=== PATIENT | male | born 1960 | race Caucasian/White ===

== ENCOUNTER 2019-03-15 21:36 | Inpatient (IN) | payer MEDICARE ==
[~2019-03-15] VITALS: Ht 177.8 cm; Wt 86.2 kg
[2019-03-15] MEDS ORDERED: LISINOPRIL20 MG PO (21:40)
[2019-03-15] MEDS ORDERED: LOVASTATIN20 MG PO (21:40)
[2019-03-15] MEDS ORDERED: FOLIC ACID1 MG PO (21:41)
[2019-03-15] MEDS ORDERED: BAYER CHEWABLE81 MG PO (21:41)
[2019-03-15] MEDS ORDERED: CELEXA10 MG PO (21:41)
[2019-03-15] MEDS ORDERED: REMERON15 MG PO (21:41)
[2019-03-15] MEDS ORDERED: SEROQUEL25 MG PO (21:42)
[2019-03-15] MEDS ORDERED: MOBIC7.5 MG PO (21:42)
[2019-03-15] MEDS ORDERED: DEPAKOTE250 MG PO (21:42)
[2019-03-15] MEDS ORDERED: COLACE100 MG PO (21:43)
[2019-03-15 22:13] LABS: BASOPHILS 0.2 % (0-2); HEMATOCRIT 38.1 % (42.0-54.0); HEMOGLOBIN 12.8 g/dL (13.5-17.5); IMMATURE GRANULOCYTES 0.1 % (0-5); LYMPHOCYTES 12.2 % (15-50); MCH 28.9 pg (26.0-34.0); MCHC 33.6 g/dL (31.0-37.0); MONOCYTES 11.4 % (2-11); NEUTROPHILS 75.1 % (40-80); PLATELET COUNT 186 10x3/uL (130-400); RBC 4.43 10x6/uL (4.20-6.10); RDW 13.3 % (11.5-14.5); WBC 9.5 10x3/uL (4.8-10.8)
[2019-03-15 22:23] LABS: APTT 27.8 SECONDS (22.8-39.4); INR 1.26 (0.85-1.17); PROTIME 15.2 SECONDS (11.6-15.0)
[2019-03-15 22:28] LABS: ALBUMIN 3.5 g/dL (3.4-5.0); ALKALINE PHOSPHATASE 69 U/L (46-116); ALT (SGPT) 48 U/L (10-68); BILIRUBIN - TOTAL 0.69 mg/dL (0.2-1.3); CALC OSMOLALITY 303 mosm/kg (275-300); CALCIUM 8.9 mg/dL (8.5-10.1); CHLORIDE - SERUM 111 mmol/L (98-107); CREATININE - SERUM 1.1 mg/dL (0.6-1.3); GLUCOSE 118 mg/dL (74-106); POTASSIUM - SERUM 3.4 mmol/L (3.5-5.1); PROTEIN - SERUM 6.6 g/dL (6.4-8.2); SODIUM 148 mmol/L (136-145); UREA NITROGEN 38 mg/dL (7-18); eGFR NON AFRICAN AMERICAN 72 mL/min (90-120)
[2019-03-15 23:04] LABS: LIPASE 157 U/L (73-393); MAGNESIUM - SERUM 2.1 mg/dL (1.8-2.4); PRO BNP 400 pg/mL (0-125); THYROID STIMULATING HORMONE 0.65 uIU/mL (0.36-3.74); TROPONIN-I 0.024 ng/mL (0.000-0.060)
[2019-03-15 23:05] LABS: CREATINE KINASE 2574 UL (21-232)
[2019-03-15 23:13] LABS: CKMB 54.4 U/L (0.0-3.6)
[2019-03-16] VITALS (7 sets, daily range): BP systolic 131–181; BP diastolic 76–85; Ht 177.8 cm; Wt 86.2 kg
--- NOTE | 2019-03-16 00:40 | NUR ---
NORMAL SALINE CONTINUED ON ADMISSION TO FLOOR.
--- NOTE | 2019-03-16 04:44 | NUR ---
UA COLLECTED VIA INOUT CATH, PER PROTOCOL AND SENT TO LAB. ELLEND WELL. PT. RESTING AT THIS TIME WITH NO NEEDS NOTED OR STATED.
[2019-03-16 04:50] LABS: APPEARANCE CLEAR (CLEAR); BILIRUBIN NEGATIVE (NEGATIVE); COLOR DK YELLOW (YELLOW); GLUCOSE NEGATIVE (NEGATIVE); KETONE MODERATE mg/dL (NEGATIVE); NITRITE NEGATIVE (NEGATIVE); PROTEIN NEGATIVE (NEGATIVE); UROBILINOGEN NORMAL (NORMAL)
[2019-03-16 04:57] LABS: UDS - AMPHET NEGATIVE QUAL (NEGATIVE); UDS - BARB NEGATIVE QUAL (NEGATIVE); UDS - BENZO NEGATIVE QUAL (NEGATIVE); UDS - COCAINE NEGATIVE QUAL (NEGATIVE); UDS - OPIATE NEGATIVE QUAL (NEGATIVE); UDS - PCP NEGATIVE QUAL (NEGATIVE); UDS - THC NEGATIVE QUAL (NEGATIVE)
[2019-03-16 05:48] LABS: BASOPHILS 0.3 % (0-2); HEMATOCRIT 36.1 % (42.0-54.0); IMMATURE GRANULOCYTES 0.1 % (0-5); LYMPHOCYTES 26.9 % (15-50); MCH 28.8 pg (26.0-34.0); MCHC 33.2 g/dL (31.0-37.0); MCV 86.6 fL (80.0-100.0); MEAN PLATELET VOLUME 9.4 fL (7.4-10.4); MONOCYTES 10.6 % (2-11); NEUTROPHILS 60.1 % (40-80); PLATELET COUNT 181 10x3/uL (130-400); RBC 4.17 10x6/uL (4.20-6.10); RDW 13.4 % (11.5-14.5); WBC 7.7 10x3/uL (4.8-10.8)
[2019-03-16 06:54] LABS: ALBUMIN 3.1 g/dL (3.4-5.0); ALKALINE PHOSPHATASE 55 U/L (46-116); ALT (SGPT) 43 U/L (10-68); BILIRUBIN - TOTAL 0.62 mg/dL (0.2-1.3); CALC OSMOLALITY 299 mosm/kg (275-300); CALCIUM 8.2 mg/dL (8.5-10.1); CARBON DIOXIDE 30.6 mmol/L (21.0-32.0); CHLORIDE - SERUM 112 mmol/L (98-107); GLUCOSE 82 mg/dL (74-106); POTASSIUM - SERUM 3.2 mmol/L (3.5-5.1); PROTEIN - SERUM 5.9 g/dL (6.4-8.2); SODIUM 148 mmol/L (136-145); UREA NITROGEN 33 mg/dL (7-18)
[2019-03-16 06:59] LABS: CREATININE - SERUM 0.8 mg/dL (0.6-1.3)
[2019-03-16 07:00] LABS: CREATINE KINASE 1739 UL (21-232); eGFR NON AFRICAN AMERICAN > 90 mL/min (90-120)
[2019-03-16 07:25] LABS: CKMB 34.6 U/L (0.0-3.6)
--- NOTE | 2019-03-16 16:18 | NUR ---
PT CONFUSED. TBI PT. BREATH SOUNDS CLEAR BILAT. TELEMETRY IN PLACE IV TO RIGHT HAND, PATENT, DRESSING CDI. SKIN TEAR AND BLISTER TO LEFT KNEE. BLISTER TO RIGHT KNEE AND THIGH. SKIN TEAR TO LEFT TOES. BED LOW, CALL LIGHT IN REACH. NO OTHER NEEDS AT THIS TIME.
--- NOTE | 2019-03-16 19:15 | NUR ---
RECEIVED CARE FROM DAY NURSE. SITTING UP IN BED WATCHING TV. REPORTS NO NEEDS AT THIS TIME. CALL LIGHT AT SIDE. IV INFUSING PER ORDER TO RIGHT HAND.
[2019-03-17 04:00] VITALS: BP 149/54
[2019-03-17 05:07] LABS: BASOPHILS 0.5 % (0-2); EOSINOPHILS 4.8 % (0-7); HEMATOCRIT 35.4 % (42.0-54.0); HEMOGLOBIN 11.9 g/dL (13.5-17.5); IMMATURE GRANULOCYTES 0.2 % (0-5); LYMPHOCYTES 31.6 % (15-50); MCH 29.1 pg (26.0-34.0); MCHC 33.6 g/dL (31.0-37.0); MCV 86.6 fL (80.0-100.0); MEAN PLATELET VOLUME 9.1 fL (7.4-10.4); MONOCYTES 8.7 % (2-11); NEUTROPHILS 54.2 % (40-80); PLATELET COUNT 167 10x3/uL (130-400); RBC 4.09 10x6/uL (4.20-6.10); RDW 13.2 % (11.5-14.5); WBC 6.3 10x3/uL (4.8-10.8)
[2019-03-17 05:27] LABS: ALBUMIN 2.9 g/dL (3.4-5.0); ALKALINE PHOSPHATASE 54 U/L (46-116); ALT (SGPT) 44 U/L (10-68); BILIRUBIN - TOTAL 0.54 mg/dL (0.2-1.3); CALC OSMOLALITY 292 mosm/kg (275-300); CALCIUM 8.2 mg/dL (8.5-10.1); CARBON DIOXIDE 29.2 mmol/L (21.0-32.0); CHLORIDE - SERUM 111 mmol/L (98-107); CREATININE - SERUM 0.8 mg/dL (0.6-1.3); GLUCOSE 81 mg/dL (74-106); POTASSIUM - SERUM 3.5 mmol/L (3.5-5.1); PROTEIN - SERUM 5.3 g/dL (6.4-8.2); SODIUM 146 mmol/L (136-145); UREA NITROGEN 22 mg/dL (7-18); eGFR NON AFRICAN AMERICAN > 90 mL/min (90-120)
[2019-03-17 09:17] VITALS: BP 179/94
--- NOTE | 2019-03-17 11:05 | NUR ---
PT CONFUSED. BREATH SOUNDS CLEAR BILAT. TELEMETRY IN PLACE. IV TO RIGHT HAND, PATENT, DRESSING CDI. PT REPORTING PAIN OF 8/10, CLAIMS THIS IS HIS BASELINE, WILL MONITOR. SKIN TEAR AND BLISTERS TO LEFT KNEE, DRESSING CDI. ABRAISIONS TO LEFT TOES. BED LOW, CALL LIGHT IN REACH. NO OTHER NEEDS AT THIS TIME.
[2019-03-17 11:45] LABS: CKMB 5.8 U/L (0.0-3.6)
[2019-03-17 11:47] LABS: CREATINE KINASE 772 UL (21-232)
[2019-03-17 13:07] VITALS: BP 172/88
[2019-03-17 17:00] VITALS: BP 178/89
--- NOTE | 2019-03-17 19:15 | NUR ---
RECEIVED CARE FROM DAY NURSE. LYING IN BED WITH EYES CLOSED. RESP EVEN AND UNLABORED. CALL LIGHT AT SIDE. IV INFUSING PER ORDER TO RIGHT HAND.
[2019-03-17 20:00] VITALS: BP 176/85
[2019-03-18] VITALS: BP 162/87
--- NOTE | 2019-03-18 03:25 | NUR ---
I have reviewed this patient and I concur with the Shift Assessment completed by the Licensed Practical Nurse today this shift.
--- NOTE | 2019-03-18 05:00 | NUR ---
IV IN RIGHT HAND DISLOADGED WITH TIP INTACT. RESITED TO RIGHT UPPER ARM. 22 GUAGE X4 STICKS WITH GOOD BLOOD RETURN NOTED.
[2019-03-18 06:08] LABS: BASOPHILS 0.5 % (0-2); EOSINOPHILS 3.6 % (0-7); HEMOGLOBIN 13.8 g/dL (13.5-17.5); IMMATURE GRANULOCYTES 0.1 % (0-5); LYMPHOCYTES 25.7 % (15-50); MCH 29.2 pg (26.0-34.0); MCHC 34.5 g/dL (31.0-37.0); MEAN PLATELET VOLUME 9.4 fL (7.4-10.4); NEUTROPHILS 62.1 % (40-80); PLATELET COUNT 180 10x3/uL (130-400); RBC 4.73 10x6/uL (4.20-6.10); RDW 12.8 % (11.5-14.5)
[2019-03-18 06:19] LABS: MCV 84.6 fL (80.0-100.0); WBC 7.9 10x3/uL (4.8-10.8)
[2019-03-18 06:48] LABS: ALBUMIN 3.3 g/dL (3.4-5.0); ALKALINE PHOSPHATASE 66 U/L (46-116); ALT (SGPT) 55 U/L (10-68); BILIRUBIN - TOTAL 0.75 mg/dL (0.2-1.3); CALCIUM 8.7 mg/dL (8.5-10.1); CARBON DIOXIDE 30.5 mmol/L (21.0-32.0); CHLORIDE - SERUM 106 mmol/L (98-107); CKMB 5.2 U/L (0.0-3.6); CREATININE - SERUM 0.7 mg/dL (0.6-1.3); GLUCOSE 75 mg/dL (74-106); POTASSIUM - SERUM 3.5 mmol/L (3.5-5.1); SODIUM 143 mmol/L (136-145); eGFR NON AFRICAN AMERICAN > 90 mL/min (90-120)
[2019-03-18 06:53] LABS: CALC OSMOLALITY 282 mosm/kg (275-300); CREATINE KINASE 558 UL (21-232); PROTEIN - SERUM 6.7 g/dL (6.4-8.2); UREA NITROGEN 11 mg/dL (7-18)
--- NOTE | 2019-03-18 09:00 | NUR ---
ASSESSMENT PER FLOW SHEET. PT IS WITHOUT DISTRESS.DOOR OPEN TO MONITOR
[2019-03-18 09:46] VITALS: BP 168/82
--- NOTE | 2019-03-18 12:34 | MORECARE ---
CASE MANAGEMENT DISCHARGE SUMMARY PATIENT: PAGE SUAREZ UNIT: [id number] ADM DATE: 03/15/19 AGE: 59 : 58 SEX: M ROOM/BED: D.2226 AUTHOR: YANIV ORR PHYSICIAN: REFERRING PHYSICIAN: ANTWON TANG MD DATE OF SERVICE: 03/18/19 Discharge Plan Patient Name: PAGE SUAREZ Facility: [facility]:[place] : 1960 Planned Disposition: Anticipated Discharge Date: Discharge Date: Expected LOS: Initial Reviewer: [email or web address] Initial Review Date: 03/18/2019 Generated: 03/18/19 1:34 pm Comments DCP- Discharge Planning Updated by [email or web address]: Mary Sosa on 03/18/19 11:[address] I called patient's sister Estela at [phone] and she would like to meet with me in about an hour to discuss discharge planning. I informed her to call me directly when she is here or inform someone at the med surg desk that she is here. Patient is sleeping in the room. CM will continue to follow and assist with discharge planning/needs. Patient Name: PAGE SUAREZ Page [id number] at 1234 All edits/amendments must be made on the electronic document DICTATION DATE: 03/18/19 1233 OPHTHALMIC MEDICAL TECHNOLOGIST: RIRI 03/18/19 1233 RPT#: [id number] DC DATE: STATUS: ADM IN [facility] [address] [place] [address] END OF REPORT
--- NOTE | 2019-03-18 13:10 | NUR ---
OT NOTE: INCREASED CONFUSION TODAY. INCREASED DIFFICULTY FOLLOWING COMMANDS. BED MOB WITH MAX ASSIST; STATIC SITTING WITH SPV; MOD ASSIST TO GET PTS FEET UNCROSSED IN ORDER TO STAND ( DUE TO HIGH TONE IN LES).. ABLE TO STAND WITH MIN ASSIST; STATIC STANDING WITH MIN ASSIST. ENCOURAGED PT TO ATTEMPT URINAL USE WITHOUT ASSIST, HOWEVER, PT ENDED UP SPILLING MAJORITY OF IT. MAX ASSIST FOR DONNING AND DOFFING BRIEF; MAX ASSIST TO JAYLON AND DOFF SOCKS; MOD ASSIST TO JAYLON GOWN. ABLE TO TAKE A FEW STEPS FORWARD AND SIDE STEP WITH MIN ASSIST AND USE OF WALKER. EXT TIME FOR PROCESSING. DURGA MCNEIL, OTR/L
[2019-03-18 14:23] VITALS: BP 167/86
--- NOTE | 2019-03-18 14:56 | MORECARE ---
CASE MANAGEMENT DISCHARGE SUMMARY PATIENT: PAGE SUAREZ UNIT: [id number] ADM DATE: 03/15/19 AGE: 59 : 58 SEX: M ROOM/BED: D.2226 AUTHOR: KIRBY,DOC PHYSICIAN: REFERRING PHYSICIAN: ANTWON TANG MD DATE OF SERVICE: 03/18/19 Discharge Plan Patient Name: PAGE SUAREZ Facility: [facility]:[place] : 1960 Planned Disposition: Inpatient Rehab Anticipated Discharge Date: Discharge Date: Expected LOS: Initial Reviewer: [email or web address] Initial Review Date: 03/18/2019 Generated: 03/18/19 3:55 pm Comments DCP- Discharge Planning Updated by [id number]: Mary Sheila on 03/18/19 11:[address] I called patient's sister Estela at [phone] and she would like to meet with me in about an hour to discuss discharge planning. I informed her to call me directly when she is here or inform someone at the med [facility] desk that she is here. Patient is sleeping in the room. CM will continue to follow and assist with discharge planning/needs. DCPIA - Discharge Planning Initial Assessment Updated by [email or web address]: Mary Sheila on 03/18/19 2:55 pm * Is the patient Alert and Oriented? No * PCP Dr. Robbins * Pharmacy [facility] [address] * Preadmission Environment Home with Family * ADLs Partial Dependent * Partial ADLs (Assistance needed) Ambulation * Equipment Walker * List name and contact numbers for known caregivers / representatives who currently or will assist patient after discharge: Estela Suarez - sister - [phone] * Verbal permission to speak to the caregivers and representatives has been obtained from the patient. Yes * Community resources currently utilized None * Additional services required to return to the preadmission environment? Yes * Can the patient safely return to the preadmission environment? No * Has this patient been hospitalized within the prior 30 days at any hospital? No External Providers External Provider: [facility] Next Contact Date: Service Request Date: Service Type: Resolution: Reviewer: Comments: Last DP export: 03/18/19 11:34 a Patient Name: PAGE SUAREZ Page [id number] at 1456 All edits/amendments must be made on the electronic document DICTATION DATE: 03/18/191454 PATCHER BOWLING BALL: RIRI 03/18/191454 RPT#: [id number] DC DATE: STATUS: ADM IN [facility] [address] [place] [address] END OF REPORT
--- NOTE | 2019-03-18 15:15 | MORECARE ---
CASE MANAGEMENT DISCHARGE SUMMARY PATIENT: PAGE SUAREZ UNIT: [id number] ADM DATE: 03/15/19 AGE: 59 : 58 SEX: M ROOM/BED: D.2226 AUTHOR: KIRBY,DOC PHYSICIAN: REFERRING PHYSICIAN: ANTWON TANG MD DATE OF SERVICE: 03/18/19 Discharge Plan Patient Name: PAGE SUAREZ Facility: [facility]:[place] : 1960 Planned Disposition: Inpatient Rehab Anticipated Discharge Date: Discharge Date: Expected LOS: Initial Reviewer: [email or web address] Initial Review Date: 03/18/2019 Generated: 03/18/19 4:14 pm Comments DCP- Discharge Planning Updated by [id number]: Mary Sosa on 03/18/19 2:[address] Patient Name: PAGE SUAREZ Admission Status: ER Accout number: [id number] Admission Date: 03-15-2019 : 1960 Admission Diagnosis: Attending: CLYDE, Current LOS: 3 Anticipated DC Date: Planned Disposition: Inpatient Rehab Primary Insurance: [employer] CHOICE PPO [employer] Discharge Planning Comments: CM met with patient's sister, Estela (She is also his POA for healthcare). She states that her brother and step father (Anurag) has been living together. She states neither of them drive, but she has had their neighbors (Swathi Aguila) be their private caregivers. She states they are neighbors with Pepe and Cherry. She states she lives in [place] and states the neighbors found her brother on the floor and did not call 911. She states that she has found that they are taking her brother's money and charging personal items on his credit card. She states her brother walks with a walker and she had him set up [facility] [place], but his caretakers did not take him. She states that she now has new caretakers that she can trust to move in the house so when her brother return home, he and her step father will never be alone. She would like him to go to [facility] inpatient rehab (he has been there before) prior to going home. I called [facility] and clinical faxed to [facility]. Estela states that she does not want him to go to a skilled unit, she thinks he would not like that. I called [facility] (and informed Estela that I was going to do so) and spoke to Leanne [place]. [place] [id number]. CM will continue to follow and assist with discharge planning/needs. Process Development Associate: Marykevin Sosa DCP- Discharge Planning Updated by [id number]: Mary Mathewjostin on 03/18/19 11:[address] I called patient's sister Estela at [phone] and she would like to meet with me in about an hour to discuss discharge planning. I informed her to call me directly when she is here or inform someone at the med surg desk that she is here. Patient is sleeping in the room. CM will continue to follow and assist with discharge planning/needs. DCPIA - Discharge Planning Initial Assessment Updated by [id number]: Mary Sosa on 03/18/19 2:55 pm * Is the patient Alert and Oriented? No * PCP Dr. Robbins * Pharmacy [facility] [address] * Preadmission Environment Home with Family * ADLs Partial Dependent * Partial ADLs (Assistance needed) Ambulation * Equipment Walker * List name and contact numbers for known caregivers / representatives who currently or will assist patient after discharge: Estela Suarez - sister - [phone] * Verbal permission to speak to the caregivers and representatives has been obtained from the patient. Yes * Community resources currently utilized None * Additional services required to return to the preadmission environment? Yes * Can the patient safely return to the preadmission environment? No * Has this patient been hospitalized within the prior 30 days at any hospital? No Last DP export: 03/18/19 1:55 p Patient Name: PAGE SUAREZ Page [id number] at 1515 All edits/amendments must be made on the electronic document DICTATION DATE: 03/18/191513 SUPERVISOR LABORATORY: RIRI 03/18/191513 RPT#: [id number] DC DATE: STATUS: ADM IN [facility] [address] [place] [address] END OF REPORT
[2019-03-18 17:12] VITALS: BP 114/68
[2019-03-18 22:03] VITALS: BP 155/82
[2019-03-19 01:49] VITALS: BP 155/82
--- NOTE | 2019-03-19 03:48 | NUR ---
PT RESTING IN BED. ALERT WITH SOME CONFUSION. NO SIGNS OF DISTRESS. BREATHING EVEN AND UNLABORED. PT STATES NO PROBLEMS AT THIS TIME. IV SITE RT CHEST. DRESSING CLEAN DRY AND INTACT. NO SIGNS OF INFECTION. BOWEL SOUNDS ACTIVE. LOWER LEG BRUISES PRESENT. WILL CONTINUE PLAN OF CARE. CALL LIGHT IN REACH. BED LOWERED AND LOCKED. SKYE ALARM ON.
--- NOTE | 2019-03-19 04:01 | NUR ---
I have reviewed this patient and I concur with the Shift Assessment completed by the Licensed Practical Nurse today this shift.
[2019-03-19 04:28] LABS: BASOPHILS 0.5 % (0-2); EOSINOPHILS 3.7 % (0-7); HEMATOCRIT 40.8 % (42.0-54.0); HEMOGLOBIN 13.8 g/dL (13.5-17.5); IMMATURE GRANULOCYTES 0.2 % (0-5); LYMPHOCYTES 30.9 % (15-50); MCH 28.6 pg (26.0-34.0); MCHC 33.8 g/dL (31.0-37.0); MCV 84.6 fL (80.0-100.0); MONOCYTES 6.2 % (2-11); NEUTROPHILS 58.5 % (40-80); PLATELET COUNT 195 10x3/uL (130-400); RBC 4.82 10x6/uL (4.20-6.10)
[2019-03-19 04:30] LABS: WBC 5.7 10x3/uL (4.8-10.8)
[2019-03-19 04:50] LABS: ALBUMIN 3.3 g/dL (3.4-5.0); ALKALINE PHOSPHATASE 65 U/L (46-116); ALT (SGPT) 49 U/L (10-68); BILIRUBIN - TOTAL 0.71 mg/dL (0.2-1.3); CALC OSMOLALITY 282 mosm/kg (275-300); CALCIUM 8.5 mg/dL (8.5-10.1); CARBON DIOXIDE 34.3 mmol/L (21.0-32.0); CHLORIDE - SERUM 106 mmol/L (98-107); CREATININE - SERUM 0.8 mg/dL (0.6-1.3); GLUCOSE 74 mg/dL (74-106); POTASSIUM - SERUM 3.1 mmol/L (3.5-5.1); PROTEIN - SERUM 6.6 g/dL (6.4-8.2); SODIUM 143 mmol/L (136-145); UREA NITROGEN 9 mg/dL (7-18); eGFR NON AFRICAN AMERICAN > 90 mL/min (90-120)
[2019-03-19 04:52] LABS: CREATINE KINASE 246 UL (21-232)
[2019-03-19 06:31] VITALS: BP 158/84
[2019-03-19 09:32] VITALS: BP 157/80
[2019-03-19] MEDS ORDERED: NORVASC10 MG PO (10:23)
--- NOTE | 2019-03-19 11:35 | NUR ---
Noted left knee has abrasion measuring 4cm x 2cm. It is healing with no signs of infection. Left #2 toe has open wound measuring 0.6cm x 0.6cm x 0.1cm and #3 toe 0.5cm x 0.5cm x 0.1cm. The wound beds are dry and there is no odor or redness. Bilateral lower legs are hyperpigmentated. Brown in color and hairless. Exoriation noted on bottom. Zinc oxide paste is being applied with personal care. Recommendations: Keep abrasion on left knee clean and dry. Cover to protect. Left #2 and #3 toes - paint with betadine daily. Continue use of zinc oxide to bottom/perineal area for protection from wetness. Turn/reposition q 2 hours when in bed. Float heels to protect from breakdown.
[2019-03-19 13:01] VITALS: BP 139/77
--- NOTE | 2019-03-19 13:31 | NUR ---
NUTRITION F/U CHART REVIEWED. PT REMAINS ON CLEAR LIQUID DIET. WILL ATTEMPT TO SPEAK WITH RE: ADVANCING DIET. NOTE POSSIBLE DC. RD FOLLOWING
--- NOTE | 2019-03-19 13:34 | NUR ---
OT NOTE: INCREASED CONFUSION; POOR WORD FINDING; UNABLE TO FOLLOW SIMPLE COMMANDS; MAX ASSIST WITH SUPINE TO SIT; MAX ASSIST FOR FOOT PLACEMENT WHILE SITTING ON EOB; MOD ASSIST FOR SIT TO STAND WITH WALKER. AMB APPROX 10 FT FROM BED TO TOILET, PT IS HAVING INCREASED DIFFICULTY USING URINAL. PT AMB WITH GAIT BELT, IV, RW, AND MIN ASSIST; MOD ASSIST WITH WALKER MGMT; PT AMB WITH LEGS EXTERNALLY ROTATED. INCREASED DIFFICULTY WITH STAND TO SIT DUE TO HIP PAIN. MAX ASSIST FOR SIT TO SUPINE. PT UNABLE TO MAKE NEEDS KNOWN SECONDARY TO CONFUSION. MAX ASSIST WITH DONNING AND DOFFING PULL UPS AND SOCKS; MOD ASSIST WITH GOWN. DURGA MCNEIL, OTR/L
[2019-03-19 18:45] VITALS: BP 149/82
--- NOTE | 2019-03-19 19:01 | NUR ---
FAMILY TO VISIT. PT IS WITHOUT DISTRESS.CONT PLAN OF CARE
[2019-03-19 20:00] VITALS: BP 144/82
--- NOTE | 2019-03-20 03:14 | NUR ---
I have reviewed this patient and I concur with the Shift Assessment completed by the Licensed Practical Nurse today this shift.
--- NOTE | 2019-03-20 03:38 | NUR ---
PT RESTING IN BED. EYES CLOSED. NO SIGNS OF DISTRESS. BREATHING EVEN AND UNLABORED. IV SITE RT CHEST DRESSING CLEAN DRY AND INTACT. NO SIGNS OF INFECTION. TELE MONITOR ON 65 SINUS. BOWEL SOUNDS ACTIVE. LT AND RT LOWER LEGS DISCOLORATION. LT TOE SORES. WILL CONTINUE PLAN OF CARE. CALL LIGHT IN REACH. BED LOWERED AND LOCKED.
[2019-03-20 04:00] VITALS: BP 133/75
[2019-03-20 07:25] LABS: BASOPHILS 0.6 % (0-2); EOSINOPHILS 3.6 % (0-7); HEMATOCRIT 40.9 % (42.0-54.0); HEMOGLOBIN 13.8 g/dL (13.5-17.5); IMMATURE GRANULOCYTES 0.2 % (0-5); LYMPHOCYTES 34.6 % (15-50); MCH 28.9 pg (26.0-34.0); MCHC 33.7 g/dL (31.0-37.0); MCV 85.7 fL (80.0-100.0); MEAN PLATELET VOLUME 9.9 fL (7.4-10.4); MONOCYTES 9.6 % (2-11); NEUTROPHILS 51.4 % (40-80); PLATELET COUNT 174 10x3/uL (130-400); RBC 4.77 10x6/uL (4.20-6.10); RDW 13.1 % (11.5-14.5); WBC 5.2 10x3/uL (4.8-10.8)
[2019-03-20 07:41] LABS: ALBUMIN 3.2 g/dL (3.4-5.0); ALKALINE PHOSPHATASE 60 U/L (46-116); ALT (SGPT) 35 U/L (10-68); CALC OSMOLALITY 291 mosm/kg (275-300); CALCIUM 8.6 mg/dL (8.5-10.1); CARBON DIOXIDE 28.4 mmol/L (21.0-32.0); CHLORIDE - SERUM 109 mmol/L (98-107); CKMB 1.4 U/L (0.0-3.6); CREATINE KINASE 108 UL (21-232); CREATININE - SERUM 0.8 mg/dL (0.6-1.3); GLUCOSE 99 mg/dL (74-106); POTASSIUM - SERUM 4.2 mmol/L (3.5-5.1); SODIUM 147 mmol/L (136-145); UREA NITROGEN 12 mg/dL (7-18); eGFR NON AFRICAN AMERICAN > 90 mL/min (90-120)
--- NOTE | 2019-03-20 08:00 | NUR ---
PT IS RESTING IN BED WITH EYES CLOSED. RESPIRATIONS ARE EVEN AND UNLABORED. PT IS EASILY AROUSED WITH VERBAL STIMULATION. PT DENIES PRESENCE OF N/V/PAIN AT THIS TIME. PT IS ORIENTED X 1. PT ABLE TO STATE NAME. PER SISTER. 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 PT DENIES FURTHER NEEDS AT THIS TIME. BED IS IN THE LOWEST POSITION. CALL LIGHT AND BEDSIDE TABLE ARE WITHIN REACH. SIDE RAILS X 2. BED ALARM IS ON AND WORKING. WILL CONT TO MONITOR.
[2019-03-20 09:05] VITALS: BP 144/81
--- NOTE | 2019-03-20 12:48 | MORECARE ---
CASE MANAGEMENT DISCHARGE SUMMARY PATIENT: PAGE SUAREZ UNIT: [id number] ADM DATE: 03/15/19 AGE: 59 : 58 SEX: M ROOM/BED: D.2226 AUTHOR: KIRBY,DOC PHYSICIAN: REFERRING PHYSICIAN: ANTWON TANG MD DATE OF SERVICE: 03/20/19 Discharge Plan Patient Name: PAGE SUAREZ Facility: [facility]:[place] : 1960 Planned Disposition: Inpatient Rehab Anticipated Discharge Date: Discharge Date: Expected LOS: Initial Reviewer: [email or web address] Initial Review Date: 03/18/2019 Generated: 03/20/19 1:47 pm Comments DCP- Discharge Planning Updated by [email or web address]: Mary Sosa on 03/20/19 11:[address] I spoke with patient and his sister today and informed him of insurance denial for inpatient rehab. His sister, Estela, would like a peer to peer done. She also agrees with psychiatric consult. He is too young for admission to our inpatient rehab and states if he needs inpatient rehab she would agree to [facility]. She does not want him to [facility] to [facility]. CM will continue to follow and assist with discharge planning/needs. DCP- Discharge Planning Updated by [id number]: Mary Sosa on 03/18/19 2:[address] Patient Name: PAGE SUAREZ Admission Status: ER Accout number: [id number] Admission Date: 03-15-2019 : 1960 Admission Diagnosis: Attending: CLYDE, Current LOS: 3 Anticipated DC Date: Planned Disposition: Inpatient Rehab Primary Insurance: [employer] CHOICE PPO [facility] Discharge Planning Comments: CM met with patient's sister, Estela (She is also his POA for healthcare). She states that her brother and step father (Anurag) has been living together. She states neither of them drive, but she has had their neighbors (Pepe and Cherry Aguila) be their private caregivers. She states they are neighbors with Pepe and Cherry. She states she lives in [place] and states the neighbors found her brother on the floor and did not call 911. She states that she has found that they are taking her brother's money and charging personal items on his credit card. She states her brother walks with a walker and she had him set up to [facility] [place], but his caretakers did not take him. She states that she now has new caretakers that she can trust to move in the house so when her brother return home, he and her step father will never be alone. She would like him to go to [facility] inpatient rehab (he has been there before) prior to going home. I called [facility] and clinical faxed to [facility]. Estela states that she does not want him to go to a skilled unit, she thinks he would not like that. I called [facility] (and informed Estela that I was going to do so) and spoke to Leanne [place]. [place] [id number]. CM will continue to follow and assist with discharge planning/needs. Power Brake Rebuilder: Mary Sosa DCP- Discharge Planning Updated by [email or web address]: Mary Soas on 03/18/19 11:[address] I called patient's sister Estela at [phone] and she would like to meet with me in about an hour to discuss discharge planning. I informed her to call me directly when she is here or inform someone at the [facility] desk that she is here. Patient is sleeping in the room. CM will continue to follow and assist with discharge planning/needs. DCPIA - Discharge Planning Initial Assessment Updated by [id number]: Mary Sheila on 03/18/19 2:55 pm * Is the patient Alert and Oriented? No * PCP Dr. Robbins * [facility] [address] * Preadmission Environment Home with Family * ADLs Partial Dependent * Partial ADLs (Assistance needed) Ambulation * Equipment Walker * List name and contact numbers for known caregivers / representatives who currently or will assist patient after discharge: Estela Suarez - sister - [phone] * Verbal permission to speak to the caregivers and representatives has been obtained from the patient. Yes * Community resources currently utilized None * Additional services required to return to the preadmission environment? Yes * Can the patient safely return to the preadmission environment? No * Has this patient been hospitalized within the prior 30 days at any hospital? No Last DP export: 03/18/19 2:15 p Patient Name: PAGE SUAREZ Page [id number] at 1248 All edits/amendments must be made on the electronic document DICTATION DATE: 03/20/191246 CUE WORKER: RIRI 03/20/191246 RPT#: [id number] DC DATE: STATUS: ADM IN [facility] [address] [place] [address] END OF REPORT
[2019-03-20 12:57] VITALS: BP 136/75
--- NOTE | 2019-03-20 15:12 | NUR ---
OT NOTE: PT ALERT IN PM. HAS LARGE STUFFED ANIMAL IN BED NEXT TO HIM. 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 THOUGH THIS INFO WAS STRANGE,THIS WAS THE LONGEST PT HAS BEEN ABLE TO HAVE CONVERSATION WITHOUT CONSTANT REDIRECTION. INSTRUCTED PT TO SIT UP ON EOB AND PROVIDED HIM WITH PLENTY OF TIME TO PERFORM INDEPENDENTLY POSSIBLE. PT WAS ABLE TO PERFORM WITH MIN ASSIST AND APPROX 5 MIN ( HAS BEEN REQUIRING MAX ASSIST). UPON SITTING ON EOB, PT REPORTED SEEING DOGS AND SMALL CHILDREN PLAYING AT HIS FEET. WHEN QUESTIONED ABOUT THIS, HE BECAME SOMEWHAT AGITATED. AT THIS TIME, PT BEGAN REQUIRING MODERATE CUEING AND REDIRECTION TO STAY ON TASK. ASSISTED TO BATHROOM WITH MOD ASSIST FOR STANDING AND MIN ASSIST FOR AMBULATION TO BATHROOM. TACTILE AND VERBAL CUES REQUIRED THE ENTIRE TIME, PT FORGETS WHAT HE IS DOING. PT HAS DIFFICULTY WITH URINATION, HE CONTINUES TO BE UNABLE TO AIM FOR TOILET. PT ENDS UP URINATING ON SOCKS OR GOWN AND BECOMES EVEN MORE FRUSTRATED. MOD ASSIST REQUIRED FOR TOILET HYGIENE INCLUDINGK DONNING/DOFFING BRIEF. MAX VERBAL INSTRUCTION FOR WALKER MGMT WHEN EXITING BATHROOM. PT EASILY FRUSTRATED WITH QUICK BURSTS OF AGITATION STATING THAT HE IS NOT GOING TO WALK OR EAT EVER AGAIN BECAUSE HE IS TIRED OF BEING PUNISHED AND TIRED OF PEOPLE MAKING FUN OF HIM. ALL ATTEMPTS AT REDIRECTION FAILED. HIS THOUGHTS AND VERBALIZATIONS BECAME VERY ERRATIC AND HE WAS NO LONGER ABLE TO STAY ON TOPIC OF CONVERSATION OR FOLLOW SIMPLE COMMANDS. CONSTANT VERBAL AND TACTILE CUES REQUIRED FOR GETTING PT BACK TO BED DURGA MCNEIL, OTR/L
--- NOTE | 2019-03-20 16:41 | MORECARE ---
CASE MANAGEMENT DISCHARGE SUMMARY PATIENT: PAGE SUAREZ UNIT: [id number] ADM DATE: 03/15/19 AGE: 59 : 58 SEX: M ROOM/BED: D.2226 AUTHOR: KIRBY,DOC PHYSICIAN: REFERRING PHYSICIAN: ANTWON TANG MD DATE OF SERVICE: 03/20/19 Discharge Plan Patient Name: PAGE SUAREZ Facility: [facility]:[place] : 1960 Planned Disposition: Inpatient Rehab Anticipated Discharge Date: Discharge Date: Expected LOS: Initial Reviewer: [email or web address] Initial Review Date: 03/18/2019 Generated: 03/20/19 5:41 pm Comments DCP- Discharge Planning Updated by [id number]: Mary Sheila on 03/20/19 3:[address] CM contacted Dr. Hodge concerning peer to peer and the medical records director did not approve inpatient rehab. I called his sister (Zen) to see if she would like me to send his referral to a skilled unit. I started to give her a list of the skilled facilities and she said that she was calling his insurance and she disconnected. I will begin working on a RE for possible skilled placement. CM will continue to follow and assist with discharge planning/needs. DCP- Discharge Planning Updated by [id number]: Mary Mathewjostin on 03/20/19 11:[address] I spoke with patient and his sister today and informed him of insurance denial for inpatient rehab. His sister, Estela, would like a peer to peer done. She also agrees with psychiatric consult. He is too young for admission to our inpatient rehab and states if he needs inpatient rehab she would agree to [facility]. She does not want him to go to [facility]. CM will continue to follow and assist with discharge planning/needs. DCP- Discharge Planning Updated by [email or web address]: Mary Mathewjostin on 03/18/19 2:[address] Patient Name: PAGE SUAREZ Admission Status: ER Accout number: [id number] Admission Date: 03-15-2019 : 1960 Admission Diagnosis: Attending: CLYDE, Current LOS: 3 Anticipated DC Date: Planned Disposition: Inpatient Rehab Primary Insurance: [employer] CHOICE PPO [employer] ADVANT Discharge Planning Comments: CM met with patient's sister, Estela (She is also his POA for healthcare). She states that her brother and step father (Anurag) has been living together. She states neither of them drive, but she has had their neighbors (Pepe and Cherry Aguila) be their private caregivers. She states they are neighbors with Pepe and Cherry. She states she lives in [place] and states the neighbors found her brother on the floor and did not call 911. She states that she has found that they are taking her brother's money and charging personal items on his credit card. She states her brother walks with a walker and she had him set up to go to counseling at the [facility] in [place], but his caretakers did not take him. She states that she now has new caretakers that she can trust to move in the house so when her brother return home, he and her step father will never be alone. She would like him to go to [facility] inpatient rehab (he has been there before) prior to going home. I called [facility] and clinical faxed to [facility]. Estela states that she does not want him to go to a skilled unit, she thinks he would not like that. I called [facility] (and informed Estela that I was going to do so) and spoke to Leanne [place]. [place] [id number]. CM will continue to follow and assist with discharge planning/needs. Baker Second: Mary Sosa DCP- Discharge Planning Updated by [email or web address]: Mary Sosa on 03/18/19 11:[address] I called patient's sister Estela at [phone] and she would like to meet with me in about an hour to discuss discharge planning. I informed her to call me directly when she is here or inform someone at the med surg desk that she is here. Patient is sleeping in the room. CM will continue to follow and assist with discharge planning/needs. DCPIA - Discharge Planning Initial Assessment Updated by [email or web address]: Mary Sosa on 03/18/19 2:55 pm * Is the patient Alert and Oriented? No * PCP Dr. Robbins * [facility] [address] * Preadmission Environment Home with Family * ADLs Partial Dependent * Partial ADLs (Assistance needed) Ambulation * Equipment Walker * List name and contact numbers for known caregivers / representatives who currently or will assist patient after discharge: Estela Suarez - [facility] - [phone] * Verbal permission to speak to the caregivers and representatives has been obtained from the patient. Yes * Community resources currently utilized None * Additional services required to return to the preadmission environment? Yes * Can the patient safely return to the preadmission environment? No * Has this patient been hospitalized within the prior 30 days at any hospital? No Last DP export: 03/20/19 11:48 a Patient Name: PAGE SUAREZ Page [id number] at 1641 All edits/amendments must be made on the electronic document DICTATION DATE: 03/20/19 1640 AGRISCIENCE TEACHER: RIRI 03/20/19 1640 RPT#: [id number] DC DATE: STATUS: ADM IN [facility] [address] [place] [address] END OF REPORT
--- NOTE | 2019-03-20 17:21 | MORECARE ---
CASE MANAGEMENT DISCHARGE SUMMARY PATIENT: PAGE SUAREZ UNIT: [id number] ADM DATE: 03/15/19 AGE: 59 : 58 SEX: M ROOM/BED: D.2226 AUTHOR: KIRBY,DOC PHYSICIAN: REFERRING PHYSICIAN: ANTWON TANG MD DATE OF SERVICE: 03/20/19 Discharge Plan Patient Name: PAGE SUAREZ Facility: [facility]:[place] : 1960 Planned Disposition: Inpatient Rehab Anticipated Discharge Date: Discharge Date: Expected LOS: Initial Reviewer: [email or web address] Initial Review Date: 03/18/2019 Generated: 03/20/19 6:21 pm Comments DCP- Discharge Planning Updated by [email or web address]: Mary Mathewjostin on 03/20/19 4:[address] Patient's sister recalled again and she is wanting to do an appeal with the insurance company concerning inpatient rehab. She is speaking with the insurance company now and just wanted me to be aware. CM will continue to follow and assist with discharge planning/needs. DCP- Discharge Planning Updated by [email or web address]: Mary Sheila on 03/20/19 3:[address] CM contacted Dr. Hodge concerning peer to peer and the emergency medicine medical director did not approve inpatient rehab. I called his sister (Zen) to see if she would like me to send his referral to a skilled unit. I started to give her a list of the skilled facilities and she said that she was calling his insurance and she disconnected. I will begin working on a RE for possible skilled placement. CM will continue to follow and assist with discharge planning/needs. DCP- Discharge Planning Updated by [id number]: Mary Sosa on 03/20/19 11:[address] I spoke with patient and his sister today and informed him of insurance denial for inpatient rehab. His sister, Estela, would like a peer to peer done. She also agrees with psychiatric consult. He is too young for admission to our inpatient rehab and states if he needs inpatient rehab she would agree to [facility]. She does not want him to go to [facility]. CM will continue to follow and assist with discharge planning/needs. DCP- Discharge Planning Updated by [email or web address]: Mary Sosa on 03/18/19 2:[address] Patient Name: PAGE SUAREZ Admission Status: ER Accout number: [id number] Admission Date: 03-15-2019 : 1960 Admission Diagnosis: Attending: CLYDE, Current LOS: 3 Anticipated DC Date: Planned Disposition: Inpatient Rehab Primary Insurance: [employer] CHOICE PPO [facility] Discharge Planning Comments: CM met with patient's sister, Estela (She is also his POA for healthcare). She states that her brother and step father (Anurag) has been living together. She states neither of them drive, but she has had their neighbors (Pepe and Cherry Aguila) be their private caregivers. She states they are neighbors with Pepe and Cherry. She states she lives in [place] and states the neighbors found her brother on the floor and did not call 911. She states that she has found that they are taking her brother's money and charging personal items on his credit card. She states her brother walks with a walker and she had him set up to go to counseling at the [facility] in [place], but his caretakers did not take him. She states that she now has new caretakers that she can trust to move in the house so when her brother return home, he and her step father will never be alone. She would like him to go to [facility] inpatient rehab (he has been there before) prior to going home. I called [facility] and clinical faxed to [facility]. Estela states that she does not want him to go to a skilled unit, she thinks he would not like that. I called [facility] (and informed Estela that I was going to do so) and spoke to Leanne [place]. [place] [id number]. CM will continue to follow and assist with discharge planning/needs. Jewel Blocker And Sawyer: Mary Sosa DCP- Discharge Planning Updated by [id number]: Mary Sosa on 03/18/19 11:[address] I called patient's sister Estela at [phone] and she would like to meet with me in about an hour to discuss discharge planning. I informed her to call me directly when she is here or inform someone at the med [facility] desk that she is here. Patient is sleeping in the room. CM will continue to follow and assist with discharge planning/needs. DCPIA - Discharge Planning Initial Assessment Updated by [id number]: Mary Sosa on 03/18/19 2:55 pm * Is the patient Alert and Oriented? No * PCP Dr. Robbins * [facility] [address] * Preadmission Environment Home with Family * ADLs Partial Dependent * Partial ADLs (Assistance needed) Ambulation * Equipment Walker * List name and contact numbers for known caregivers / representatives who currently or will assist patient after discharge: Estela Suarez - [facility] - [phone] * Verbal permission to speak to the caregivers and representatives has been obtained from the patient. Yes * Community resources currently utilized None * Additional services required to return to the preadmission environment? Yes * Can the patient safely return to the preadmission environment? No * Has this patient been hospitalized within the prior 30 days at any hospital? No Last DP export: 03/20/19 3:41 p Patient Name: PAGE SUAREZ Page [id number] at 1721 All edits/amendments must be made on the electronic document DICTATION DATE: 03/20/191720 OYSTER CULTIVATOR: RIRI 03/20/191720 RPT#: [id number] DC DATE: STATUS: ADM IN [facility] [address] [place] [address] END OF REPORT
[2019-03-20 19:21] VITALS: BP 133/73
--- NOTE | 2019-03-20 19:30 | NUR ---
PT ALERT AND WATCHING TV. CONFUSED.ABLE TO STATE NAME BUT CONFUSED TO SURROUNDINGS, TIME, AND SITUATION. REDIRECTED PATIENT SEVERAL TIMES DURING ASSESSMENT. PT CONSTANTLY FIDGETS AND ATTEMPTS TO PULL AT TELEMETRY LEADS. PT CALM WHEN SPOKEN TO BUT GROWS AGGITATED WHEN ASKED QUESTIONS AT TIMES. HAS RIGHT CHEST IV THAT IS PATENT. WEARING TELEMETRY. SCABS AND EXCORIATION BILATERALLY TO LOWER EXTREMETIES. PATIENT HAS CALL LIGHT IN HAND. USES WHEN HE IS IN NEED. BED LOCKED AND LOWERED. FALL PRECAUTIONS IN PLACE. CPOC.
[2019-03-20 20:00] VITALS: BP 119/55
[2019-03-21 04:00] VITALS: BP 139/73
[2019-03-21 04:56] LABS: BASOPHILS 0.4 % (0-2); EOSINOPHILS 2.2 % (0-7); HEMATOCRIT 39.6 % (42.0-54.0); HEMOGLOBIN 13.4 g/dL (13.5-17.5); IMMATURE GRANULOCYTES 0.3 % (0-5); LYMPHOCYTES 26.7 % (15-50); MCHC 33.8 g/dL (31.0-37.0); MCV 85.7 fL (80.0-100.0); MEAN PLATELET VOLUME 9.2 fL (7.4-10.4); NEUTROPHILS 62.4 % (40-80); PLATELET COUNT 203 10x3/uL (130-400); RBC 4.62 10x6/uL (4.20-6.10); RDW 13.3 % (11.5-14.5)
[2019-03-21 05:16] LABS: WBC 7.3 10x3/uL (4.8-10.8)
[2019-03-21 05:41] LABS: ALBUMIN 3.2 g/dL (3.4-5.0); ALKALINE PHOSPHATASE 61 U/L (46-116); ALT (SGPT) 28 U/L (10-68); BILIRUBIN - TOTAL 0.47 mg/dL (0.2-1.3); CALC OSMOLALITY 291 mosm/kg (275-300); CALCIUM 8.7 mg/dL (8.5-10.1); CARBON DIOXIDE 30.6 mmol/L (21.0-32.0); CHLORIDE - SERUM 109 mmol/L (98-107); CKMB 1.1 U/L (0.0-3.6); CREATINE KINASE 58 UL (21-232); GLUCOSE 85 mg/dL (74-106); PROTEIN - SERUM 6.3 g/dL (6.4-8.2); SODIUM 147 mmol/L (136-145); UREA NITROGEN 15 mg/dL (7-18)
[2019-03-21 05:42] LABS: CREATININE - SERUM 1.1 mg/dL (0.6-1.3); POTASSIUM - SERUM 3.5 mmol/L (3.5-5.1); eGFR NON AFRICAN AMERICAN 72 mL/min (90-120)
--- NOTE | 2019-03-21 06:35 | NUR ---
I have reviewed this patient and I concur with the Shift Assessment completed by the Licensed Practical Nurse today this shift.
--- NOTE | 2019-03-21 07:14 | NUR ---
ALERT AND ORIENTED TO SELF. LUNGS CLEAR BILATERALLY IN ALL GEORGE. HEART SOUNDS S1 AND S2 HEARD IN ALL GEORGE. BOWEL SOUNDS ACTIVE X 4. IV TO RIGHT CHEST PATENT WITHOUT REDNESS. DENIES PAIN. DENIES NEEDS. BED LOW. FALL PRECAUTIONS IN PLACE. CALL [facility] AND PERSONAL ITEMS IN REACH. WILL CONTINUE TO MONITOR.
[2019-03-21 08:59] VITALS: BP 130/63
--- NOTE | 2019-03-21 09:40 | NUR ---
PATIENT SLEEPING. WILL CONTINUE TO MONITOR.
--- NOTE | 2019-03-21 10:55 | MORECARE ---
CASE MANAGEMENT DISCHARGE SUMMARY PATIENT: PAGE SUAREZ UNIT: [id number] ADM DATE: 03/15/19 AGE: 59 : 58 SEX: M ROOM/BED: D.2226 AUTHOR: KIRBY,DOC PHYSICIAN: REFERRING PHYSICIAN: ANTWON TANG MD DATE OF SERVICE: 03/21/19 Discharge Plan Patient Name: PAGE SUAREZ Facility: [facility]:[place] : 1960 Planned Disposition: Inpatient Rehab Anticipated Discharge Date: Discharge Date: Expected LOS: Initial Reviewer: [email or web address] Initial Review Date: 03/18/2019 Generated: 03/21/19 11:55 am Comments DCP- Discharge Planning Updated by [email or web address]: Mary Mathewjostin on 03/20/19 4:[address] Patient's sister recalled again and she is wanting to do an appeal with the insurance company concerning inpatient rehab. She is speaking with the insurance company now and just wanted me to be aware. CM will continue to follow and assist with discharge planning/needs. DCP- Discharge Planning Updated by [id number]: Mary Sheila on 03/20/19 3:[address] CM contacted Dr. Hodge concerning peer to peer and the medical management specialist did not approve inpatient rehab. I called his sister (Zen) to see if she would like me to send his referral to a skilled unit. I started to give her a list of the skilled facilities and she said that she was calling his insurance and she disconnected. I will begin working on a RE for possible skilled placement. CM will continue to follow and assist with discharge planning/needs. DCP- Discharge Planning Updated by [email or web address]: Mary Sosa on 03/20/19 11:[address] I spoke with patient and his sister today and informed him of insurance denial for inpatient rehab. His sister, Estela, would like a peer to peer done. She also agrees with psychiatric consult. He is too young for admission to our inpatient rehab and states if he needs inpatient rehab she would agree to [facility]. She does not want him to go to [facility]. CM will continue to follow and assist with discharge planning/needs. DCP- Discharge Planning Updated by [id number]: Mary Sosa on 03/18/19 2:[address] Patient Name: PAGE SUAREZ Admission Status: ER Accout number: [id number] Admission Date: 03-15-2019 : 1960 Admission Diagnosis: Attending: CLYDE, Current LOS: 3 Anticipated DC Date: Planned Disposition: Inpatient Rehab Primary Insurance: [employer] CHOICE PPO [facility] Discharge Planning Comments: CM met with patient's sister, Estela (She is also his POA for healthcare). She states that her brother and step father (Anurag) has been living together. She states neither of them drive, but she has had their neighbors (Pepe and Cherry Aguila) be their private caregivers. She states they are neighbors with Pepe and Cherry. She states she lives in [place] and states the neighbors found her brother on the floor and did not call 911. She states that she has found that they are taking her brother's money and charging personal items on his credit card. She states her brother walks with a walker and she had him set up to go to counseling at the [facility] in [place], but his caretakers did not take him. She states that she now has new caretakers that she can trust to move in the house so when her brother return home, he and her step father will never be alone. She would like him to go to [facility] inpatient rehab (he has been there before) prior to going home. I called [facility] and clinical faxed to [facility]. Estela states that she does not want him to go to a skilled unit, she thinks he would not like that. I called [facility] (and informed Estela that I was going to do so) and spoke to Le[place]. [place] [id number]. CM will continue to follow and assist with discharge planning/needs. General Ledger Accountant: Mary Sosa DCP- Discharge Planning Updated by [id number]: Mary Sosa on 03/18/19 11:[address] I called patient's sister Estela at [phone] and she would like to meet with me in about an hour to discuss discharge planning. I informed her to call me directly when she is here or inform someone at the med [facility] desk that she is here. Patient is sleeping in the room. CM will continue to follow and assist with discharge planning/needs. DCPIA - Discharge Planning Initial Assessment Updated by [id number]: Marykevin Sosa on 03/18/19 2:55 pm * Is the patient Alert and Oriented? No * PCP Dr. Robbins * [facility] [address] * Preadmission Environment Home with Family * ADLs Partial Dependent * Partial ADLs (Assistance needed) Ambulation * Equipment Walker * List name and contact numbers for known caregivers / representatives who currently or will assist patient after discharge: Estela Suarez [facility] [phone] * Verbal permission to speak to the caregivers and representatives has been obtained from the patient. Yes * Community resources currently utilized None * Additional services required to return to the preadmission environment? Yes * Can the patient safely return to the preadmission environment? No * Has this patient been hospitalized within the prior 30 days at any hospital? No External Providers External Provider: OTHER-OTHER Next Contact Date: Service Request Date: Service Type: Resolution: Reviewer: Comments: Last DP export: 03/20/19 4:21 p Patient Name: PAGE SUAREZ Page 91869 at 1055 All edits/amendments must be made on the electronic document DICTATION DATE: 03/21/19 1055 COLD MEAT CHEF: RIRI 03/21/19 1055 RPT#: [id number] DC DATE: STATUS: ADM IN [facility] [address] [place] [address] END OF REPORT
--- NOTE | 2019-03-21 11:09 | MORECARE ---
CASE MANAGEMENT DISCHARGE SUMMARY PATIENT: PAGE SUAREZ UNIT: [id number] ADM DATE: 03/15/19 AGE: 59 : 58 SEX: M ROOM/BED: D.2226 AUTHOR: KIRBY,DOC PHYSICIAN: REFERRING PHYSICIAN: ANTWON TANG MD DATE OF SERVICE: 03/21/19 Discharge Plan Patient Name: PAGE SUAREZ Facility: [facility]:[place] : 1960 Planned Disposition: Inpatient Rehab Anticipated Discharge Date: Discharge Date: Expected LOS: Initial Reviewer: [email or web address] Initial Review Date: 03/18/2019 Generated: 03/21/19 12:09 pm Comments DCP- Discharge Planning Updated by [email or web address]: Mary Sheila on 03/21/19 10:[address] Patient's sister called concerning appeal for inpatient rehab. She states that [facility] is sending pre and post notes to the insurance from the last time he had rehab there. She states that they need me to fax the POA and any additional notes to them to review. I faxed the POA and additional notes to [phone] Case #[id number] per Estela's (POA/sister) request. I did inform her of Dr. Coffman's recommendation for inpatient psychiatric unit and she disagrees at this time. She states that she feels if he gets rehab and go home she will have him follow up at [facility]. CM will continue to follow and assist with discharge planning/needs. DCP- Discharge Planning Updated by [id number]: Mary Sheila on 03/20/19 4:[address] Patient's sister recalled again and she is wanting to do an appeal with the insurance company concerning inpatient rehab. She is speaking with the insurance company now and just wanted me to be aware. CM will continue to follow and assist with discharge planning/needs. DCP- Discharge Planning Updated by [id number]: Mary Sheila on 03/20/19 3:[address] CM contacted Dr. Hodge concerning peer to peer and the infertility medical assistant did not approve inpatient rehab. I called his sister (Zen) to see if she would like me to send his referral to a skilled unit. I started to give her a list of the skilled facilities and she said that she was calling his insurance and she disconnected. I will begin working on a RE for possible skilled placement. CM will continue to follow and assist with discharge planning/needs. DCP- Discharge Planning Updated by [email or web address]: Mary Sosa on 03/20/19 11:[address] I spoke with patient and his sister today and informed him of insurance denial for inpatient rehab. His sister, Estela, would like a peer to peer done. She also agrees with psychiatric consult. He is too young for admission to our inpatient rehab and states if he needs inpatient rehab she would agree to [facility]. She does not want him to go to [facility]. CM will continue to follow and assist with discharge planning/needs. DCP- Discharge Planning Updated by [email or web address]: Mary Sosa on 03/18/19 2:[address] Patient Name: PAGE SUAREZ Admission Status: ER Accout number: [id number] Admission Date: 03-15-2019 : 1960 Admission Diagnosis: Attending: CLYDE, Current LOS: 3 Anticipated DC Date: Planned Disposition: Inpatient Rehab Primary Insurance: [employer] CHOICE PPO [employer] ADV[employer] Discharge Planning Comments: CM met with patient's sister, Estela (She is also his POA for healthcare). She states that her brother and step father (Anurag) has been living together. She states neither of them drive, but she has had their neighbors (Pepe and Cherry Aguila) be their private caregivers. She states they are neighbors with Pepe and Cherry. She states she lives in [place] and states the neighbors found her brother on the floor and did not call 911. She states that she has found that they are taking her brother's money and charging personal items on his credit card. She states her brother walks with a walker and she had [facility] [place], but his caretakers did not take him. She states that she now has new caretakers that she can trust to move in the house so when her brother return home, he and her step father will never be alone. She would like him to go to [facility] inpatient rehab (he has been there before) prior to going home. I called [facility] and clinical faxed to [facility]. Estela states that she does not want him to go to a skilled unit, she thinks he would not like that. I called [facility] (and informed Estela that I was going to do so) and spoke to Le[place]. [place] [id number]. CM will continue to follow and assist with discharge planning/needs. Licensed Embalmer: Mary Sosa DCP- Discharge Planning Updated by [id number]: Mary Sheila on 03/18/19 11:[address] I called patient's sister Estela at [phone] and she would like to meet with me in about an hour to discuss discharge planning. I informed her to call me directly when she is here or inform someone at the [facility] desk that she is here. Patient is sleeping in the room. CM will continue to follow and assist with discharge planning/needs. DCPIA - Discharge Planning Initial Assessment Updated by [id number]: Mary Sheila on 03/18/19 2:55 pm * Is the patient Alert and Oriented? No * PCP Dr. Robbins * Pharmacy [facility] on [address] * Preadmission Environment Home with Family * ADLs Partial Dependent * Partial ADLs (Assistance needed) Ambulation * Equipment Walker * List name and contact numbers for known caregivers / representatives who currently or will assist patient after discharge: Estela Suarez - sister - [phone] * Verbal permission to speak to the caregivers and representatives has been obtained from the patient. Yes * Community resources currently utilized None * Additional services required to return to the preadmission environment? Yes * Can the patient safely return to the preadmission environment? No * Has this patient been hospitalized within the prior 30 days at any hospital? No Last DP export: 03/21/19 9:55 a Patient Name: PAGE SUAREZ Page 84747 at 1109 All edits/amendments must be made on the electronic document DICTATION DATE: 03/21/191108 DIAPER MACHINE TENDER: RIRI 03/21/191108 RPT#: [id number] DC DATE: STATUS: ADM IN [facility] [address] [place] [address] END OF REPORT
--- NOTE | 2019-03-21 12:17 | NUR ---
SPOKE WITH SISTER WHO STATES SHE IS GOING TO TALK TO ANDREW BURROUGHS ABOUT PATIENT'S MEDICATIONS. STATES BELIEVES MEDICATIONS HAVE BEEN INCREASED AND WANTS "NORMAL" DOSES BACK. ANDREW BURROUGHS TO SEE PATIENT.
--- NOTE | 2019-03-21 12:39 | NUR ---
OT NOTE: PT MORE CONFUSED AND DISORIENTED TODAY. PT WAS ALERT X 1 ONLY.. DIFFICULTY WITH 1 STEP COMMANDS; VERY LETHARGIC. MOD ASSIST WITH SUPINE TO SIT; AMB TO BATHROOM WITH MAX VERBAL AND MOD TACTILE CUES. PT HAD PREVIOUSLY URINATED IN BED AND REQUIRED COMPLETE CHANGE OF LINENS;; MOD ASSIST TO WASH FACE; MAX ASSIST TO WASH BODY.. ATTEMPTED TO WASH PERINEAL AREA WITH MOD CUES. DURGA MCNEIL, OTR/L
--- NOTE | 2019-03-21 13:08 | NUR ---
RESTING IN BED. SISTER AT BEDSIDE. WILL CONTINUE TO MONITOR.
[2019-03-21 13:43] VITALS: BP 148/79
--- NOTE | 2019-03-21 13:45 | CN ---
PATIENT NAME:PAGE SUAREZ MEDICAL RECORD: [id number] : 58 LOCATION:D.[facility] ADMIT DATE: 03/15/19 ACCOUNT: [id number] CONSULTING PHYSICIAN: SERA RODRIGUEZ MD REFERRING PHYSICIAN: ANTWON TANG MD DATE OF CONSULTATION: 03/20/2019 IDENTIFYING DATA: The patient is 59 years old and he is admitted to the hospital on a voluntary basis. CHIEF COMPLAINT: Mental status changes. HISTORY OF PRESENT ILLNESS: The patient's sister apparently has been at bedside and is mentioned as giving an additional history a couple of times in the record. She is not there when I go to see him. The patient is cooperative, but clearly is psychotic. His thought processes are disorganized. He is talking about things that are delusional. He is worried that someone is going to come into the room and beat him up. He is clearly very distressed. 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 MENTAL STATUS EXAMINATION: The patient is awake, alert, and oriented fully. His mood is anxious. His affect is constricted. Thought processes are disorganized and loose in associations. He is unable to cooperate with memory, concentration, or abstraction ability testing, but they may all be inferred based on circumstance to be impaired. He is denying any auditory or visual hallucinations even though I observe him to attend to stimuli not present. He is clearly paranoid and delusional and he says he does not want to hurt anybody, but goes on to say that if forced to protect himself he will do whatever he needs to. He does not have any information about anyone specifically who is out to "get him." ASSESSMENT: Schizophrenia. PLAN: The patient is in need of neuroleptic treatment and the 25 mg of Seroquel he is taking is not adequate. I am going to start him on Geodon at a dose of 20 mg twice daily. I will continue the Remeron and will increase the Depakote to a therapeutic range. A level should be checked in a few days. It is my opinion that he is in need of inpatient psychiatric care and I would strongly recommend that he be transferred to acute inpatient psychiatric care once medically cleared. I do not think he currently meets criteria for an involuntary commitment and that he is not threatening to hurt himself or anyone else and that his psychotic symptoms while present do not rise to the level of being grossly incompetent in a way that would directly endanger him. Nevertheless, I strongly urged him to accept inpatient care and he said he would, although I am not entirely sure if he is going to follow through with it. TRANSINT:[id number] Voice Confirmation ID: [id number] DOCUMENT ID: [id number] CONSULT REPORT [id number] PAGE SUAREZ PETER MD at 1345 CC: [id number] DICTATION DATE: 03/20/19 170 STAPLE SIDE LASTER: 03/20/19 190 ADM IN [place] [id number] [place] [address]
--- NOTE | 2019-03-21 15:45 | MORECARE ---
CASE MANAGEMENT DISCHARGE SUMMARY PATIENT: PAGE SUAREZ UNIT: [id number] ADM DATE: 03/15/19 AGE: 59 : 58 SEX: M ROOM/BED: D.2226 AUTHOR: KIRBY,DOC PHYSICIAN: REFERRING PHYSICIAN: ANTWON TANG MD DATE OF SERVICE: 03/21/19 Discharge Plan Patient Name: PAGE SUAREZ Facility: [facility]:[place] : 1960 Planned Disposition: Inpatient Rehab Anticipated Discharge Date: Discharge Date: Expected LOS: Initial Reviewer: [email or web address] Initial Review Date: 03/18/2019 Generated: 03/21/19 4:45 pm Comments DCP- Discharge Planning Updated by [email or web address]: Mary Sosa on 03/21/19 2:[address] I spoke with Estela again concerning discharge plans. She does not want her brother at this time to go to a psychiatric facility. She states that [facility] has called her and said that inpatient rehab was approved but they needed a copy of her POA faxed. I faxed that this morning to the number given and Estela is faxing it at this time again. I called Migdalia with [facility] and left a message. I am waiting on a call back from [facility] for authorization for admission. DCP- Discharge Planning Updated by [id number]: Mary Sosa on 03/21/19 10:[address] Patient's sister called concerning appeal for inpatient rehab. She states that Migdalia at [facility] is sending pre and post notes to the insurance from the last time he had rehab there. She states that they need me to fax the POA and any additional notes to them to review. I faxed the POA and additional notes to [phone] Case #[id number] per Estela's (POA/sister) request. I did inform her of Dr. Coffman's recommendation for inpatient psychiatric unit and she disagrees at this time. She states that she feels if he gets rehab and go home she will have him follow up at [facility]. CM will continue to follow and assist with discharge planning/needs. DCP- Discharge Planning Updated by [id number]: Mary Sosa on 03/20/19 4:[address] Patient's sister recalled again and she is wanting to do an appeal with the insurance company concerning inpatient rehab. She is speaking with the insurance company now and just wanted me to be aware. CM will continue to follow and assist with discharge planning/needs. DCP- Discharge Planning Updated by [id number]: Mary Sosa on 03/20/19 3:[address] CM contacted Dr. Hodge concerning peer to peer and the medical secretary did not approve inpatient rehab. I called his sister (Zen) to see if she would like me to send his referral to a skilled unit. I started to give her a list of the skilled facilities and she said that she was calling his insurance and she disconnected. I will begin working on a RE for possible skilled placement. CM will continue to follow and assist with discharge planning/needs. DCP- Discharge Planning Updated by [email or web address]: Mary Sosa on 03/20/19 11:[address] I spoke with patient and his sister today and informed him of insurance denial for inpatient rehab. His sister, Estela, would like a peer to peer done. She also agrees with psychiatric consult. He is too young for admission to our inpatient rehab and states if he needs inpatient rehab she would agree to [facility]. She does not want him to go to [facility]. CM will continue to follow and assist with discharge planning/needs. DCP- Discharge Planning Updated by [id number]: Mary Sosa on 03/18/19 2:[address] Patient Name: PAGE SUAREZ Admission Status: ER Accout number: [id number] Admission Date: 03-15-2019 : 1960 Admission Diagnosis: Attending: CLYDE Current LOS: 3 Anticipated DC Date: Planned Disposition: Inpatient Rehab Primary Insurance: [employer] CHOICE PPO MCR ADVANT Discharge Planning Comments: CM met with patient's sister, Estela (She is also his POA for healthcare). She states that her brother and step father (Anurag) has been living together. She states neither of them drive, but she has had their neighbors (Pepe and Cherry Aguila) be their private caregivers. She states they are neighbors with Pepe and Cherry. She states she lives in [place] and states the neighbors found her brother on the floor and did not call 911. She states that she has found that they are taking her brother's money and charging personal items on his credit card. She states her brother walks with a walker and she had him set up [facility] [place], but his caretakers did not take him. She states that she now has new caretakers that she can trust to move in the house so when her brother return home, he and her step father will never be alone. She would like him to go to [facility] inpatient rehab (he has been there before) prior to going home. I called Migdalia and clinical faxed to [facility]. Estela states that she does not want him to go to a skilled unit, she thinks he would not like that. I called [employer] (and informed Estela that I was going to do so) and spoke to Le[place]. [place] [id number]. CM will continue to follow and assist with discharge planning/needs. Check Writer Salesperson: Mary Sosa DCP- Discharge Planning Updated by [id number]: Mary Sosa on 03/18/19 11:[address] I called patient's sister Estela at [phone] and she would like to meet with me in about an hour to discuss discharge planning. I informed her to call me directly when she is here or inform someone at the [facility] desk that she is here. Patient is sleeping in the room. CM will continue to follow and assist with discharge planning/needs. DCPIA - Discharge Planning Initial Assessment Updated by [email or web address]: Mary Sosa on 03/18/19 2:55 pm * Is the patient Alert and Oriented? No * PCP Dr. Robbins * [facility] [address] * Preadmission Environment Home with Family * ADLs Partial Dependent * Partial ADLs (Assistance needed) Ambulation * Equipment Walker * List name and contact numbers for known caregivers / representatives who currently or will assist patient after discharge: Estela Suarez - sister - [phone] * Verbal permission to speak to the caregivers and representatives has been obtained from the patient. Yes * Community resources currently utilized None * Additional services required to return to the preadmission environment? Yes * Can the patient safely return to the preadmission environment? No * Has this patient been hospitalized within the prior 30 days at any hospital? No Last DP export: 03/21/19 10:09 a Patient Name: PAGE SUAREZ Page [id number] at 1545 All edits/amendments must be made on the electronic document DICTATION DATE: 03/21/191543 TRAVEL CONSULTANT: RIRI 03/21/191543 RPT#: [id number] DC DATE: STATUS: ADM IN [facility] [address] [place] [address] END OF REPORT
--- NOTE | 2019-03-21 16:08 | NUR ---
Nutrition Follow Up: Pt was asleep at the time of RD visit. Interview deferred at this time. Diet: HAMLET PO Intake: 37% meal avg but did eat 100% @ breakfast today BM: 03/18/19 Meds and labs noted Rec continue current diet. RD following.
[2019-03-21 17:24] VITALS: BP 130/66
--- NOTE | 2019-03-21 19:30 | NUR ---
PT ALERT BUT DISORIENTED TO TIME PLACE AND SITUATION. PT FREQUENTLY CONFUSED AND NEEDS CONSTANT REDIRECTION. HAS RIGHT UPPER ARM/SHOULDER IV THAT IS PATENT. HAS CALL LIGHT IN HAND. ROOM AIR. FALL PRECAUTIONS IN PLACE. CPOC.
--- NOTE | 2019-03-21 19:42 | NUR ---
OT NOTE: PT VERY LETHARGIC . PT REQUIRED MAX/TOTAL A WITH SIMPLE GROOMING TASKS. THANK YOU, RASHMI MONTANO
[2019-03-21 20:00] VITALS: BP 104/55
--- NOTE | 2019-03-21 21:00 | NUR ---
PT PULLED OFF TELEMETRY LEADS SEVERAL TIMES. REAPPLIED.
--- NOTE | 2019-03-21 21:20 | NUR ---
CALL TO KEL DUMONT ABOUT GEODON MEDICATION. NEW ORDER STATES 10 MG OF A 20 MG CAPSULE. PHARMACY STATED THERE WAS NO SUCH DOSE OF 10 MG. RELAYED INFORMATION TO KEL TO SEE IF ANY OTHER POSSIBILITIES OR SOLUTIONS. KEL STATED TO HOLD THIS DOSE AND HE WOULD REVIEW WITH DR. FLORES TOMORROW. PHARMACY DC'D ORDER.
[2019-03-22] VITALS: BP 147/81
--- NOTE | 2019-03-22 03:30 | NUR ---
I have reviewed this patient and I concur with the Shift Assessment completed by the Licensed Practical Nurse today this shift.
[2019-03-22 04:00] VITALS: BP 143/83
[2019-03-22 04:23] LABS: BASOPHILS 0.5 % (0-2); EOSINOPHILS 2.6 % (0-7); HEMATOCRIT 38.9 % (42.0-54.0); HEMOGLOBIN 12.9 g/dL (13.5-17.5); IMMATURE GRANULOCYTES 0.2 % (0-5); LYMPHOCYTES 35.3 % (15-50); MCH 28.7 pg (26.0-34.0); MCHC 33.2 g/dL (31.0-37.0); MCV 86.4 fL (80.0-100.0); MEAN PLATELET VOLUME 9.2 fL (7.4-10.4); MONOCYTES 8.1 % (2-11); NEUTROPHILS 53.3 % (40-80); PLATELET COUNT 206 10x3/uL (130-400); RDW 13.5 % (11.5-14.5); WBC 6.6 10x3/uL (4.8-10.8)
[2019-03-22 04:53] LABS: CALC OSMOLALITY 293 mosm/kg (275-300); CALCIUM 8.4 mg/dL (8.5-10.1); CARBON DIOXIDE 31.7 mmol/L (21.0-32.0); CHLORIDE - SERUM 109 mmol/L (98-107); CKMB 1.1 U/L (0.0-3.6); CREATINE KINASE 117 UL (21-232); GLUCOSE 81 mg/dL (74-106); POTASSIUM - SERUM 3.9 mmol/L (3.5-5.1); SODIUM 146 mmol/L (136-145); eGFR NON AFRICAN AMERICAN 81 mL/min (90-120)
[2019-03-22 04:59] LABS: UREA NITROGEN 24 mg/dL (7-18)
--- NOTE | 2019-03-22 05:17 | NUR ---
ENTERED PT ROOM AND PT HAD RIPPED IV OUT AND HAD RIPPED TUBING IN VARIOUS PLACES. BED AND BATH PROVIDED TO PATIENT.
--- NOTE | 2019-03-22 06:25 | NUR ---
CATHETER FROM PREVIOUS IV FOUND AND INTACT. RESITED IV TO THE LEFT UPPER ARM/SHOULDER.
--- NOTE | 2019-03-22 07:38 | NUR ---
REPORT RECIEVED. WILL CONTINUE WITH POC. PT CURRENTLY LYING SUPINE. CALL LIGHT W/I REACH. PT IS CONFUSED TO SITUATION AND PERSON. FALL PRECAUTIONS IN PLACE. RR EVEN AND UNLABORED ON RA. L.SHOULDER PIV IS SALINE LOCKED. NO S/S OF DISTRESS NOTED. PT DENIES ANY NEEDS AT THIS TIME. WILL CTM.
[2019-03-22 08:20] VITALS: BP 160/75
--- NOTE | 2019-03-22 10:02 | NUR ---
AM MEDICATIONS ADMINISTERED. PT DENIES ANY NEEDS. PT CONTINUES TO RESPOND TO VOICES AND CARRIES ON CONVERSATIONS. HALLUCINATIONS AND DELUSIONS NOTED. WILL CTM.
--- NOTE | 2019-03-22 11:53 | NUR ---
OT NOTE: UPON ENTERING ROOM, PT WAS LIEING ON HIS STOMACH IN THE BED. UNSURE HOW HE GOT INTO THIS POSITION, BUT HE WAS UNABLE TO RETURN ON HIS BACK. REQUIRED MAX/TOTAL ASSIST TO GET PT FROM PRONE TO EOB SITTING. MAX ASSIST TO STAND WITH WALKER. BEGAN TO AMB AND PT STATED THAT HE HAD TO GO TO BATHROOM. URINAL PLACED IN POSITION BUT PT UNABLE TO HOLD IT. MAX ASSIST TO JAYLON SOCKS; MOD ASSIST TO JAYLON GOWN; MOD ASSIST WITH COMBING HAIR AND MIN ASSIST TO WASH FACE. PT REFUSED BREAKFAST THIS AM. BACK TO BED WITH MAX ASSIST. PT WAS MORE ALERT AND LESS CONFUSED TODAY. DURGA MCNEIL, OTR/L
[2019-03-22 12:25] VITALS: BP 143/71
--- NOTE | 2019-03-22 12:58 | MORECARE ---
CASE MANAGEMENT DISCHARGE SUMMARY PATIENT: PAGE SUAREZ UNIT: [id number] ADM DATE: 03/15/19 AGE: 59 : 58 SEX: M ROOM/BED: D.2226 AUTHOR: KIRBY,DOC PHYSICIAN: REFERRING PHYSICIAN: ANTWON TANG MD DATE OF SERVICE: 03/22/19 Discharge Plan Patient Name: PAGE SUAREZ Facility: [facility]:[place] : 1960 Planned Disposition: Inpatient Rehab Anticipated Discharge Date: Discharge Date: Expected LOS: Initial Reviewer: [email or web address] Initial Review Date: 03/18/2019 Generated: 03/22/19 1:58 pm Comments DCP- Discharge Planning Updated by [email or web address]: Mary Sosa on 03/21/19 2:[address] I spoke with Estela again concerning discharge plans. She does not want her brother at this time to go to a psychiatric facility. She states that [facility] has called her and said that inpatient rehab was approved but they needed a copy of her POA faxed. I faxed that this morning to the number given and Estela is faxing it at this time again. I called Migdalia with [facility] and left a message. I am waiting on a call back from [facility] for authorization for admission. DCP- Discharge Planning Updated by [id number]: Mary Sosa on 03/21/19 10:[address] Patient's sister called concerning appeal for inpatient rehab. She states that Migdalia at [facility] is sending pre and post notes to the insurance from the last time he had rehab there. She states that they need me to fax the POA and any additional notes to them to review. I faxed the POA and additional notes to [phone] Case #[id number] per Estela's (POA/sister) request. I did inform her of Dr. Coffman's recommendation for inpatient psychiatric unit and she disagrees at this time. She states that she feels if he gets rehab and go home she will have him follow up at [facility]. CM will continue to follow and assist with discharge planning/needs. DCP- Discharge Planning Updated by [email or web address]: Mary Sosa on 03/20/19 4:[address] Patient's sister recalled again and she is wanting to do an appeal with the insurance company concerning inpatient rehab. She is speaking with the insurance company now and just wanted me to be aware. CM will continue to follow and assist with discharge planning/needs. DCP- Discharge Planning Updated by [email or web address]: Mary Sosa on 03/20/19 3:[address] CM contacted Dr. Hodge concerning peer to peer and the medical assistant float did not approve inpatient rehab. I called his sister (Zen) to see if she would like me to send his referral to a skilled unit. I started to give her a list of the skilled facilities and she said that she was calling his insurance and she disconnected. I will begin working on a RE for possible skilled placement. CM will continue to follow and assist with discharge planning/needs. DCP- Discharge Planning Updated by [id number]: Mary Sosa on 03/20/19 11:[address] I spoke with patient and his sister today and informed him of insurance denial for inpatient rehab. His sister, Estela, would like a peer to peer done. She also agrees with psychiatric consult. He is too young for admission to our inpatient rehab and states if he needs inpatient rehab she would agree to [facility]. She does not want him to go to [facility]. CM will continue to follow and assist with discharge planning/needs. DCP- Discharge Planning Updated by [email or web address]: Mary Sosa on 03/18/19 2:[address] Patient Name: PAGE SUAREZ Admission Status: ER Accout number: [id number] Admission Date: 03-15-2019 : 1960 Admission Diagnosis: Attending: CLYDE Current LOS: 3 Anticipated DC Date: Planned Disposition: Inpatient Rehab Primary Insurance: [employer] CHOICE PPO MCR ADVANT Discharge Planning Comments: CM met with patient's sister, Estela (She is also his POA for healthcare). She states that her brother and step father (Anurag) has been living together. She states neither of them drive, but she has had their neighbors (Pepe and Cherry Aguila) be their private caregivers. She states they are neighbors with Pepe and Cherry. She states she lives in [place] and states the neighbors found her brother on the floor and did not call 911. She states that she has found that they are taking her brother's money and charging personal items on his credit card. She states her brother walks with a walker and she had him set up to [facility] [place], but his caretakers did not take him. She states that she now has new caretakers that she can trust to move in the house so when her brother return home, he and her step father will never be alone. She would like him to go to [facility] inpatient rehab (he has been there before) prior to going home. I called Migdalia and clinical faxed to [facility]. Estela states that she does not want him to go to a skilled unit, she thinks he would not like that. I called [employer] (and informed Estela that I was going to do so) and spoke to Leanne [place]. [place] [id number]. CM will continue to follow and assist with discharge planning/needs. Manager Medicaid: Mary Sosa DCP- Discharge Planning Updated by [email or web address]: Mary Sosa on 03/18/19 11:[address] I called patient's sister Estela at [phone] and she would like to meet with me in about an hour to discuss discharge planning. I informed her to call me directly when she is here or inform someone at the med [facility] desk that she is here. Patient is sleeping in the room. CM will continue to follow and assist with discharge planning/needs. DCPIA - Discharge Planning Initial Assessment Updated by [email or web address]: Mary Sosa on 03/18/19 2:55 pm * Is the patient Alert and Oriented? No * PCP Dr. Robbins * [facility] [address] * Preadmission Environment Home with Family * ADLs Partial Dependent * Partial ADLs (Assistance needed) Ambulation * Equipment Walker * List name and contact numbers for known caregivers / representatives who currently or will assist patient after discharge: Estela Suarez - sister - [phone] * Verbal permission to speak to the caregivers and representatives has been obtained from the patient. Yes * Community resources currently utilized None * Additional services required to return to the preadmission environment? Yes * Can the patient safely return to the preadmission environment? No * Has this patient been hospitalized within the prior 30 days at any hospital? No External Providers External Provider: OTHER-OTHER Next Contact Date: Service Request Date: Service Type: Resolution: Reviewer: Comments: Last DP export: 03/21/19 2:45 p Patient Name: PAGE SUAREZ Page [id number] at 1258 All edits/amendments must be made on the electronic document DICTATION DATE: 03/22/19 1257 THERAPIST: RIRI 03/22/19 1257 RPT#: [id number] DC DATE: STATUS: ADM IN [facility] [address] [place] [address] END OF REPORT
--- NOTE | 2019-03-22 13:09 | NUR ---
PT DISCHARGED HOME VIA WHEELCHAIR WITH FAMILY. PIV REMOVED WITH CATHETER TIP FULLY INTACT. TELEMETRY REMOVED AND RETURNED. PT SIGNED PROPER DISCHARGE INSTRUCTIONS AND REMOVED ALL VALUABLES FROM THE ROOM.
--- NOTE | 2019-03-22 13:12 | NUR ---
I have reviewed this patient and I concur with the Shift Assessment completed by the Licensed Practical Nurse today this shift.
--- NOTE | 2019-03-22 13:12 | MORECARE ---
CASE MANAGEMENT DISCHARGE SUMMARY PATIENT: PAGE SUAREZ UNIT: [id number] ADM DATE: 03/15/19 AGE: 59 : 58 SEX: M ROOM/BED: D.2226 AUTHOR: KIRBYDOC PHYSICIAN: REFERRING PHYSICIAN: ANTWON TANG MD DATE OF SERVICE: 03/22/19 Discharge Plan Patient Name: PAGE SUAREZ Facility: [facility]:[place] : 1960 Planned Disposition: Inpatient Rehab Anticipated Discharge Date: Discharge Date: Expected LOS: Initial Reviewer: [id number] Initial Review Date: 03/18/2019 Generated: 03/22/19 2:12 pm Comments DCP- Discharge Planning Updated by [email or web address]: Mary Mathewjostin on 03/22/19 12:[address] Sher Blanchard (APS escalator installer) met with patient today. He is going to call his sister, Estela, for more information. He has asked that we call him when he is discharged and inform of DC disposition so APS can continue to follow him. Sher's call back number is [phone] Ext. [phone]. Fax number is [phone]. DCP- Discharge Planning Updated by [id number]: Mary Mathewjostin on 03/22/19 12:[address] I have called [facility] and left a message for Camilla Shepard to return my call. Her number is Ext. [phone] to inquire about the appeal for inpatient rehab for this patient. I will continue to try and reach [employer] to check on appeal. CM will continue to follow and assist with discharge planning/needs. DCP- Discharge Planning Updated by [id number]: Mary Mathewjostin on 03/21/19 2:[address] I spoke with Estela again concerning discharge plans. She does not want her brother at this time to go to a psychiatric facility. She states that [facility] has called her and said that inpatient rehab was approved but they needed a copy of her POA faxed. I faxed that this morning to the number given and Estela is faxing it at this time again. I called Migdalia with [facility] and left a message. I am waiting on a call back from [facility] for authorization for admission. DCP- Discharge Planning Updated by [id number]: Mary Sosa on 03/21/19 10:[address] Patient's sister called concerning appeal for inpatient rehab. She states that Migdalia at [facility] rehab is sending pre and post notes to the insurance from the last time he had rehab there. She states that they need me to fax the POA and any additional notes to them to review. I faxed the POA and additional notes to [phone] Case #[id number] per Estela's (POA/sister) request. I did inform her of Dr. Coffman's recommendation for inpatient psychiatric unit and she disagrees at this time. She states that she feels if he gets rehab and go home she will have him follow up at [facility]. CM will continue to follow and assist with discharge planning/needs. DCP- Discharge Planning Updated by [email or web address]: Mary Sosa on 03/20/19 4:[address] Patient's sister recalled again and she is wanting to do an appeal with the insurance company concerning inpatient rehab. She is speaking with the insurance company now and just wanted me to be aware. CM will continue to follow and assist with discharge planning/needs. DCP- Discharge Planning Updated by [id number]: Mary Sosa on 03/20/19 3:[address] CM contacted Dr. Hodge concerning peer to peer and the medical transcriber did not approve inpatient rehab. I called his sister (Zen) to see if she would like me to send his referral to a skilled unit. I started to give her a list of the skilled facilities and she said that she was calling his insurance and she disconnected. I will begin working on a RE for possible skilled placement. CM will continue to follow and assist with discharge planning/needs. DCP- Discharge Planning Updated by [id number]: Mary Sosa on 03/20/19 11:[address] I spoke with patient and his sister today and informed him of insurance denial for inpatient rehab. His sister, Estela, would like a peer to peer done. She also agrees with psychiatric consult. He is too young for admission to our inpatient rehab and states if he needs inpatient rehab she would agree to [facility]. She does not want him to go to [facility]. CM will continue to follow and assist with discharge planning/needs. DCP- Discharge Planning Updated by [id number]: Mary Sosa on 03/18/19 2:[address] Patient Name: PAGE SUAREZ Admission Status: FREEMAN Accout number: [id number] Admission Date: 03-15-2019 : 1960 Admission Diagnosis: Attending: CLYDE, Current LOS: 3 Anticipated DC Date: Planned Disposition: Inpatient Rehab Primary Insurance: [employer] CHOICE PPO [facility] Discharge Planning Comments: CM met with patient's sister, Estela (She is also his POA for healthcare). She states that her brother and step father (Anurag) has been living together. She states neither of them drive, but she has had their neighbors (Pepe and Cherry Aguila) be their private caregivers. She states they are neighbors with Pepe and Cherry. She states she lives in [place] and states the neighbors found her brother on the floor and did not call 911. She states that she has found that they are taking her brother's money and charging personal items on his credit card. She states her brother walks with a walker and she had him set up to [facility] [place], but his caretakers did not take him. She states that she now has new caretakers that she can trust to move in the house so when her brother return home, he and her step father will never be alone. She would like him to go to [facility] inpatient rehab (he has been there before) prior to going home. I called Migdalia and clinical faxed to [facility]. Estela states that she does not want him to go to a skilled unit, she thinks he would not like that. I called APS (and informed Estela that I was going to do so) and spoke to Leanne [place]. [place] [id number]. CM will continue to follow and assist with discharge planning/needs. Chaplain Resident: Mary Mathewjostin DCP- Discharge Planning Updated by [email or web address]: Mary Sosa on 03/18/19 11:[address] I called patient's sister Estela at [phone] and she would like to meet with me in about an hour to discuss discharge planning. I informed her to call me directly when she is here or inform someone at the med surg desk that she is here. Patient is sleeping in the room. CM will continue to follow and assist with discharge planning/needs. DCPIA - Discharge Planning Initial Assessment Updated by [id number]: Mary Sosa on 03/18/19 2:55 pm * Is the patient Alert and Oriented? No * PCP Dr. Robbins * Pharmacy [facility] on [address] * Preadmission Environment Home with Family * ADLs Partial Dependent * Partial ADLs (Assistance needed) Ambulation * Equipment Walker * List name and contact numbers for known caregivers / representatives who currently or will assist patient after discharge: Estela Suarez - [facility] - [phone] * Verbal permission to speak to the caregivers and representatives has been obtained from the patient. Yes * Community resources currently utilized None * Additional services required to return to the preadmission environment? Yes * Can the patient safely return to the preadmission environment? No * Has this patient been hospitalized within the prior 30 days at any hospital? No Last DP export: 03/22/19 11:58 a Patient Name: PAGE SUAREZ Page [id number] at 1312 All edits/amendments must be made on the electronic document DICTATION DATE: 03/22/191311 [place] ATTENDANT: RIRI 03/22/191311 RPT#: [id number] DC DATE: STATUS: ADM IN [facility] [address] [place] [address] END OF REPORT
--- NOTE | 2019-03-22 13:12 | NUR ---
I have reviewed this patient and I concur with the Shift Assessment completed by the Licensed Practical Nurse today this shift.
--- NOTE | 2019-03-22 15:59 | NUR ---
IN SPITE OF EFFORTS TO INSTRUCT PT NOT TO GET OUT OF BED, PT WANTED TO GO TO THE CHAIR. PLACED SKYE MAT IN CHAIR AND PLACED PT IN CHAIR. CALL LIGHT W/I REACH. PT DENIES ANY NEEDS. WILL CTM.
--- NOTE | 2019-03-22 17:01 | MORECARE ---
CASE MANAGEMENT DISCHARGE SUMMARY PATIENT: PAGE SUAREZ UNIT: [id number] ADM DATE: 03/15/19 AGE: 59 : 58 SEX: M ROOM/BED: D.2226 AUTHOR: KIRBY,DOC PHYSICIAN: REFERRING PHYSICIAN: ANTWON TANG MD DATE OF SERVICE: 03/22/19 Discharge Plan Patient Name: PAGE SUAREZ Facility: [facility]:[place] : 1960 Planned Disposition: Inpatient Rehab Anticipated Discharge Date: Discharge Date: Expected LOS: Initial Reviewer: [id number] Initial Review Date: 03/18/2019 Generated: 03/22/19 6:01 pm Comments DCP- Discharge Planning Updated by [email or web address]: Mary Sosa on 03/22/19 3:[address] I spoke with Edy at [facility] concerning expedited appeal for inpatient rehab. His Claim number is [id number] and Edy states it shows it is still under review and a decision will be reached on March. I did call Estela Suarez, sister, and informed her of this. CM will continue to follow and assist with discharge planning/needs. [facility] expedited appeal - [phone] OPT #3 DCP- Discharge Planning Updated by [email or web address]: Mary Sosa on 03/22/19 12:[address] Sher Blanchard (APS investigator utility bill complaints) met with patient today. He is going to call his sister, Estela, for more information. He has asked that we call him when he is discharged and inform of DC disposition so APS can continue to follow him. Sher's call back number is [phone] Ext. [phone]. Fax number is [phone]. DCP- Discharge Planning Updated by [id number]: Mary Sosa on 03/22/19 12:[address] I have called [facility] and left a message for Camilla Shepard to return my call. Her number is Ext. [phone] to inquire about the appeal for inpatient rehab for this patient. I will continue to try and reach [facility] to check on appeal. CM will continue to follow and assist with discharge planning/needs. DCP- Discharge Planning Updated by [id number]: Mary Sosa on 03/21/19 2:[address] I spoke with Estela again concerning discharge plans. She does not want her brother at this time to go to a psychiatric facility. She states that [facility] has called her and said that inpatient rehab was approved but they needed a copy of her POA faxed. I faxed that this morning to the number given and Estela is faxing it at this time again. I called Migdalia with [facility] and left a message. I am waiting on a call back from [facility] for authorization for admission. DCP- Discharge Planning Updated by [id number]: Mary Sosa on 03/21/19 10:[address] Patient's sister called concerning appeal for inpatient rehab. She states that Migdalia at [facility] rehab is sending pre and post notes to the insurance from the last time he had rehab there. She states that they need me to fax the POA and any additional notes to them to review. I faxed the POA and additional notes to [phone] Case #[id number] per Estela's (POA/sister) request. I did inform her of Dr. Coffman's recommendation for inpatient psychiatric unit and she disagrees at this time. She states that she feels if he gets rehab and go home she will have him follow up at [facility]. CM will continue to follow and assist with discharge planning/needs. DCP- Discharge Planning Updated by [email or web address]: Mary Sosa on 03/20/19 4:[address] Patient's sister recalled again and she is wanting to do an appeal with the insurance company concerning inpatient rehab. She is speaking with the insurance company now and just wanted me to be aware. CM will continue to follow and assist with discharge planning/needs. DCP- Discharge Planning Updated by [id number]: Mary Sosa on 03/20/19 3:[address] CM contacted Dr. Hodge concerning peer to peer and the medical appliance maker did not approve inpatient rehab. I called his sister (Zen) to see if she would like me to send his referral to a skilled unit. I started to give her a list of the skilled facilities and she said that she was calling his insurance and she disconnected. I will begin working on a RE for possible skilled placement. CM will continue to follow and assist with discharge planning/needs. DCP- Discharge Planning Updated by [id number]: Mary Sosa on 03/20/19 11:[address] I spoke with patient and his sister today and informed him of insurance denial for inpatient rehab. His sister, Estela, would like a peer to peer done. She also agrees with psychiatric consult. He is too young for admission to our inpatient rehab and states if he needs inpatient rehab she would agree to [facility]. She does not want him to go to [facility]. CM will continue to follow and assist with discharge planning/needs. DCP- Discharge Planning Updated by [id number]: Mary Sosa on 03/18/19 2:[address] Patient Name: PAGE SUAREZ Admission Status: ER Accout number: [id number] Admission Date: 03-15-2019 : 1960 Admission Diagnosis: Attending: CLYDE Current LOS: 3 Anticipated DC Date: Planned Disposition: Inpatient Rehab Primary Insurance: [employer] CHOICE PPO [employer] Discharge Planning Comments: CM met with patient's sister, Estela (She is also his POA for healthcare). She states that her brother and step father (Anurag) has been living together. She states neither of them drive, but she has had their neighbors (Swathi Aguila) be their private caregivers. She states they are neighbors with Pepe and Cherry. She states she lives in [place] and states the neighbors found her brother on the floor and did not call 911. She states that she has found that they are taking her brother's money and charging personal items on his credit card. She states her brother walks with a walker and she had him set up to [facility] [place], but his caretakers did not take him. She states that she now has new caretakers that she can trust to move in the house so when her brother return home, he and her step father will never be alone. She would like him to go to [facility] inpatient rehab (he has been there before) prior to going home. I called Migdalia and clinical faxed to [facility]. Estela states that she does not want him to go to a skilled unit, she thinks he would not like that. I called APS (and informed Estela that I was going to do so) and spoke [place] Le[place]. [place] [id number]. CM will continue to follow and assist with discharge planning/needs. Teletype Or Varitype Keyboard Operator: Mary Sosa DCP- Discharge Planning Updated by [id number]: Mary Sosa on 03/18/19 11:[address] I called patient's sister Estela at [phone] and she would like to meet with me in about an hour to discuss discharge planning. I informed her to call me directly when she is here or inform someone at the med surg desk that she is here. Patient is sleeping in the room. CM will continue to follow and assist with discharge planning/needs. DCPIA - Discharge Planning Initial Assessment Updated by [id number]: Mary Sosa on 03/18/19 2:55 pm * Is the patient Alert and Oriented? No * PCP Dr. Robbins * Pharmacy [facility] on [address] * Preadmission Environment Home with Family * ADLs Partial Dependent * Partial ADLs (Assistance needed) Ambulation * Equipment Walker * List name and contact numbers for known caregivers / representatives who currently or will assist patient after discharge: Estela Suarez - sister - [phone] * Verbal permission to speak to the caregivers and representatives has been obtained from the patient. Yes * Community resources currently utilized None * Additional services required to return to the preadmission environment? Yes * Can the patient safely return to the preadmission environment? No * Has this patient been hospitalized within the prior 30 days at any hospital? No Last DP export: 03/22/19 12:12 p Patient Name: PAGE SUAREZ Page [id number] at 1701 All edits/amendments must be made on the electronic document DICTATION DATE: 03/22/191700 SALES ORDER PROCESSOR: RIRI 03/22/191700 RPT#: [id number] DC DATE: STATUS: ADM IN [facility] [address] [place] [address] END OF REPORT
--- NOTE | 2019-03-22 17:27 | NUR ---
PATIENT EATING. NO NEEDS AT THIS TIME. CL IN REACH. WCTM
[2019-03-22 17:44] VITALS: BP 118/73
--- NOTE | 2019-03-22 19:15 | NUR ---
RECEIVED CARE FROM DAY NURSE. LYING IN BED PULLING APART PULLUP AND TAKING OFF GOWN. LINENS ARE WET WITH URINE. LINENS CHANGED AT THIS TIME. IV SL TO LEFT UPPER ARM. CALL LIGHT AT SIDE AND SKYE MAT IN PLACE AND ARMED.
[2019-03-22 20:00] VITALS: BP 141/75
[2019-03-23 04:00] VITALS: BP 161/85
--- NOTE | 2019-03-23 04:29 | NUR ---
I have reviewed this patient and I concur with the Shift Assessment completed by the Licensed Practical Nurse today this shift.
[2019-03-23 05:25] LABS: BASOPHILS 0.5 % (0-2); EOSINOPHILS 2.2 % (0-7); HEMATOCRIT 37.5 % (42.0-54.0); HEMOGLOBIN 12.4 g/dL (13.5-17.5); IMMATURE GRANULOCYTES 0.3 % (0-5); LYMPHOCYTES 40.8 % (15-50); MCH 28.3 pg (26.0-34.0); MCHC 33.1 g/dL (31.0-37.0); MCV 85.6 fL (80.0-100.0); MEAN PLATELET VOLUME 9.3 fL (7.4-10.4); MONOCYTES 8.5 % (2-11); NEUTROPHILS 47.7 % (40-80); PLATELET COUNT 178 10x3/uL (130-400); RBC 4.38 10x6/uL (4.20-6.10); WBC 5.9 10x3/uL (4.8-10.8)
[2019-03-23 05:47] LABS: CALC OSMOLALITY 283 mosm/kg (275-300); CALCIUM 8.6 mg/dL (8.5-10.1); CARBON DIOXIDE 29.1 mmol/L (21.0-32.0); CHLORIDE - SERUM 106 mmol/L (98-107); CREATININE - SERUM 0.8 mg/dL (0.6-1.3); GLUCOSE 81 mg/dL (74-106); POTASSIUM - SERUM 3.6 mmol/L (3.5-5.1); SODIUM 142 mmol/L (136-145); UREA NITROGEN 18 mg/dL (7-18); eGFR NON AFRICAN AMERICAN > 90 mL/min (90-120)
[2019-03-23 09:16] VITALS: BP 135/67
[2019-03-23 12:54] VITALS: BP 143/79
[2019-03-23 18:29] VITALS: BP 128/69
--- NOTE | 2019-03-23 19:15 | NUR ---
RECEIVED CARE FROM DAY NURSE. LYING IN BED ON SIDE. EYES CLOSED. RESP EVEN AND UNLABORED. CALL LIGHT AT SIDE. SKYE MAT IN PLACE AND ARMED.
[2019-03-23 20:00] VITALS: BP 116/64
[2019-03-24] VITALS: BP 129/76
--- NOTE | 2019-03-24 03:50 | NUR ---
I have reviewed this patient and I concur with the Shift Assessment completed by the Licensed Practical Nurse today this shift.
[2019-03-24 05:45] VITALS: BP 158/76
[2019-03-24 07:03] LABS: CALC OSMOLALITY 280 mosm/kg (275-300); CALCIUM 8.8 mg/dL (8.5-10.1); CARBON DIOXIDE 29.1 mmol/L (21.0-32.0); CHLORIDE - SERUM 106 mmol/L (98-107); CREATININE - SERUM 0.8 mg/dL (0.6-1.3); GLUCOSE 83 mg/dL (74-106); POTASSIUM - SERUM 4.6 mmol/L (3.5-5.1); SODIUM 140 mmol/L (136-145); UREA NITROGEN 21 mg/dL (7-18); eGFR NON AFRICAN AMERICAN > 90 mL/min (90-120)
[2019-03-24 07:21] LABS: BASOPHILS 0.6 % (0-2); EOSINOPHILS 2.4 % (0-7); HEMATOCRIT 40.2 % (42.0-54.0); HEMOGLOBIN 13.5 g/dL (13.5-17.5); IMMATURE GRANULOCYTES 0.2 % (0-5); LYMPHOCYTES 37.5 % (15-50); MCH 28.8 pg (26.0-34.0); MCHC 33.6 g/dL (31.0-37.0); MCV 85.7 fL (80.0-100.0); MEAN PLATELET VOLUME 9.7 fL (7.4-10.4); MONOCYTES 9.5 % (2-11); NEUTROPHILS 49.8 % (40-80); PLATELET COUNT 202 10x3/uL (130-400); RBC 4.69 10x6/uL (4.20-6.10); RDW 13.1 % (11.5-14.5); WBC 6.6 10x3/uL (4.8-10.8)
[2019-03-24 08:44] VITALS: BP 154/87
[2019-03-24 12:59] VITALS: BP 148/77
[2019-03-24 18:03] VITALS: BP 143/75
[2019-03-24 20:00] VITALS: BP 132/73
--- NOTE | 2019-03-24 23:57 | NUR ---
PT RECEIVED WITH EYES OPEN WATCHING TV. CONFUSION NOTED. INCONTINENT OF BLADDER WITH PERICARE PROVIDED WITH COMPLETE LINEN CHANGE PROVIDED. NO S/S OF DISTRESS. PT FRIENDLY. HS MEDICATIONS GIVEN, TOLERATED WELL. NO S/S OF DISTRESS NOTED. RESTING WITH EYE CLOSED AT THIS TIME. WILL CONTINUE TO OBSERVE.
--- NOTE | 2019-03-25 02:18 | NUR ---
PT RESTING WITH EYES CLOSED AND CHEST RISING. NO BEHAVIORS NOTED. WILL CONTINUE TO OBSERVE.
[2019-03-25 04:00] VITALS: BP 131/60
[2019-03-25 04:36] LABS: BASOPHILS 0.9 % (0-2); EOSINOPHILS 1.9 % (0-7); HEMATOCRIT 36.7 % (42.0-54.0); HEMOGLOBIN 12.2 g/dL (13.5-17.5); IMMATURE GRANULOCYTES 0.3 % (0-5); LYMPHOCYTES 36.9 % (15-50); MCH 28.4 pg (26.0-34.0); MCHC 33.2 g/dL (31.0-37.0); MCV 85.3 fL (80.0-100.0); MEAN PLATELET VOLUME 9.2 fL (7.4-10.4); MONOCYTES 10.8 % (2-11); NEUTROPHILS 49.2 % (40-80); PLATELET COUNT 204 10x3/uL (130-400); RDW 13.2 % (11.5-14.5); WBC 5.8 10x3/uL (4.8-10.8)
[2019-03-25 04:47] LABS: CALC OSMOLALITY 287 mosm/kg (275-300); CALCIUM 8.4 mg/dL (8.5-10.1); CARBON DIOXIDE 34.4 mmol/L (21.0-32.0); CHLORIDE - SERUM 108 mmol/L (98-107); GLUCOSE 87 mg/dL (74-106); SODIUM 143 mmol/L (136-145); UREA NITROGEN 25 mg/dL (7-18); eGFR NON AFRICAN AMERICAN 81 mL/min (90-120)
[2019-03-25 04:52] LABS: POTASSIUM - SERUM 3.6 mmol/L (3.5-5.1)
--- NOTE | 2019-03-25 07:34 | NUR ---
PT LAYING IN BED AWAKE AND CONFUSED X3. RR EVEN AND UNLABORED. NO S/S OF DISTRESS. BED LOW CALL LIGHT WITHIN REACH. WILL CONTINUE TO MONITOR.
--- NOTE | 2019-03-25 08:47 | MORECARE ---
CASE MANAGEMENT DISCHARGE SUMMARY PATIENT: PAGE SUAREZ UNIT: [id number] ADM DATE: 03/15/19 AGE: 59 : 58 SEX: M ROOM/BED: D.2226 AUTHOR: KIRBY,DOC PHYSICIAN: REFERRING PHYSICIAN: ANTWON TANG MD DATE OF SERVICE: 03/25/19 Discharge Plan Patient Name: PAGE SUAREZ Facility: [facility]:[place] : 1960 Planned Disposition: Inpatient Rehab Anticipated Discharge Date: Discharge Date: Expected LOS: Initial Reviewer: [email or web address] Initial Review Date: 03/18/2019 Generated: 03/25/19 9:47 am Comments DCP- Discharge Planning Updated by [email or web address]: Mary Sosa on 03/25/19 7:[address] Received a note from patient's sister (Estela Suarez) that she has an authorization from patient's insurance for Inpatient rehab at [facility]. Authorization number is [id number] and phone number is [phone]. Dates are from 03/19 until 03/29 but dates can be reset when admitted. I sent this information to Migdalia at [facility]. Updated clinical sent. CM will continue to follow and assist with discharge planning/needs. DCP- Discharge Planning Updated by [id number]: Mary Sheila on 03/22/19 3:[address] I spoke with Edy at [facility] concerning expedited appeal for inpatient rehab. His Claim number is [id number] and Edy states it shows it is still under review and a decision will be reached on March. I did call Estela Suarez, sister, and informed her of this. CM will continue to follow and assist with discharge planning/needs. [facility] expedited appeal - [phone] OPT #3 DCP- Discharge Planning Updated by [id number]: Mary Sosa on 03/22/19 12:[address] Sher Blanchard (APS blade sharpener) met with patient today. He is going to call his sister, Estela, for more information. He has asked that we call him when he is discharged and inform of DC disposition so APS can continue to follow him. Sher's call back number is [phone] Ext. [phone]. Fax number is [phone]. DCP- Discharge Planning Updated by [id number]: Mary Sosa on 03/22/19 12:[address] I have called [facility] and left a message for Camilla Shepard to return my call. Her number is [phone]. [phone] to inquire about the appeal for inpatient rehab for this patient. I will continue to try and reach [facility] to check on appeal. CM will continue to follow and assist with discharge planning/needs. DCP- Discharge Planning Updated by [email or web address]: Mary Sosa on 03/21/19 2:[address] I spoke with Estela again concerning discharge plans. She does not want her brother at this time to go to a psychiatric facility. She states that [facility] has called her and said that inpatient rehab was approved but they needed a copy of her POA faxed. I faxed that this morning to the number given and Estela is faxing it at this time again. I called Migdalia with [facility] and left a message. I am waiting on a call back from [facility] for authorization for admission. DCP- Discharge Planning Updated by [id number]: Mary Sosa on 03/21/19 10:[address] Patient's sister called concerning appeal for inpatient rehab. She states that Migdalia at [facility] rehab is sending pre and post notes to the insurance from the last time he had rehab there. She states that they need me to fax the POA and any additional notes to them to review. I faxed the POA and additional notes to [phone] Case #[id number] per Estela's (POA/sister) request. I did inform her of Dr. Coffman's recommendation for inpatient psychiatric unit and she disagrees at this time. She states that she feels if he gets rehab and go home she will have him follow up at [facility]. CM will continue to follow and assist with discharge planning/needs. DCP- Discharge Planning Updated by [id number]: Mary Sosa on 03/20/19 4:[address] Patient's sister recalled again and she is wanting to do an appeal with the insurance company concerning inpatient rehab. She is speaking with the insurance company now and just wanted me to be aware. CM will continue to follow and assist with discharge planning/needs. DCP- Discharge Planning Updated by [id number]: Mary Sosa on 03/20/19 3:[address] CM contacted Dr. Hodge concerning peer to peer and the adjunct faculty for medical terminology did not approve inpatient rehab. I called his sister (Zen) to see if she would like me to send his referral to a skilled unit. I started to give her a list of the skilled facilities and she said that she was calling his insurance and she disconnected. I will begin working on a RE for possible skilled placement. CM will continue to follow and assist with discharge planning/needs. DCP- Discharge Planning Updated by [id number]: Mary Sosa on 03/20/19 11:[address] I spoke with patient and his sister today and informed him of insurance denial for inpatient rehab. His sister, Estela, would like a peer to peer done. She also agrees with psychiatric consult. He is too young for admission to our inpatient rehab and states if he needs inpatient rehab she would agree to [facility]. She does not want him to go to [facility]. CM will continue to follow and assist with discharge planning/needs. DCP- Discharge Planning Updated by [email or web address]: Mary Sosa on 03/18/19 2:[address] Patient Name: PAGE SUAREZ Admission Status: Accout number: [id number] Admission Date: 03-15-2019 : 1960 Admission Diagnosis: Attending: CLYDE Current LOS: 3 Anticipated DC Date: Planned Disposition: Inpatient Rehab Primary Insurance: [employer] CHO[employer] PPO [facility] Discharge Planning Comments: CM met with patient's sister, Estela (She is also his POA for healthcare). She states that her brother and step father (Anurag) has been living together. She states neither of them drive, but she has had their neighbors (Pepe and Cherry Aguila) be their private caregivers. She states they are neighbors with Pepe and Cherry. She states she lives in [place] and states the neighbors found her brother on the floor and did not call 911. She states that she has found that they are taking her brother's money and charging personal items on his credit card. She states her brother walks with a walker and she had [facility] [place], but his caretakers did not take him. She states that she now has new caretakers that she can trust to move in the house so when her brother return home, he and her step father will never be alone. She would like him to go to [facility] inpatient rehab (he has been there before) prior to going home. I called Migdalia and clinical faxed to [facility]. Estela states that she does not want him to go to a skilled unit, she thinks he would not like that. I called APS (and informed Estela that I was going to do so) and spoke to Leanne [place]. [place] [id number]. CM will continue to follow and assist with discharge planning/needs. Miller Supervisor: Mary Sosa DCP- Discharge Planning Updated by [id number]: Mary Sosa on 03/18/19 11:[address] I called patient's sister Estela at [phone] and she would like to meet with me in about an hour to discuss discharge planning. I informed her to call me directly when she is here or inform someone at the [facility] desk that she is here. Patient is sleeping in the room. CM will continue to follow and assist with discharge planning/needs. DCPIA - Discharge Planning Initial Assessment Updated by [id number]: Mary Sheila on 03/18/19 2:55 pm * Is the patient Alert and Oriented? No * PCP Dr. Robbins * [facility] [address] * Preadmission Environment Home with Family * ADLs Partial Dependent * Partial ADLs (Assistance needed) Ambulation * Equipment Walker * List name and contact numbers for known caregivers / representatives who currently or will assist patient after discharge: Estela Suarez - sister - [phone] * Verbal permission to speak to the caregivers and representatives has been obtained from the patient. Yes * Community resources currently utilized None * Additional services required to return to the preadmission environment? Yes * Can the patient safely return to the preadmission environment? No * Has this patient been hospitalized within the prior 30 days at any hospital? No Last DP export: 03/22/19 4:01 p Patient Name: PAGE SUAREZ Page 92411 at 0847 All edits/amendments must be made on the electronic document DICTATION DATE: 03/25/19845 MICROBIOLOGY LAB MANAGER: RIRI 03/25/19845 RPT#: [id number] DC DATE: STATUS: ADM IN [facility] [address] [place] [address] END OF REPORT
[2019-03-25 08:53] VITALS: BP 146/81
--- NOTE | 2019-03-25 11:39 | MORECARE ---
CASE MANAGEMENT DISCHARGE SUMMARY PATIENT: PAGE SUAREZ UNIT: [id number] ADM DATE: 03/15/19 AGE: 59 : 58 SEX: M ROOM/BED: D.2226 AUTHOR: KIRBY,DOC PHYSICIAN: REFERRING PHYSICIAN: ANTWON TANG MD DATE OF SERVICE: 03/25/19 Discharge Plan Patient Name: PAGE SUAREZ Facility: [facility]:[place] : 1960 Planned Disposition: Inpatient Rehab Anticipated Discharge Date: Discharge Date: Expected LOS: Initial Reviewer: [email or web address] Initial Review Date: 03/18/2019 Generated: 03/25/19 12:39 pm Comments DCP- Discharge Planning Updated by [id number]: Mary Sosa on 03/25/19 10:[address] I spoke with Migdalia at [facility], they are still trying to get the determination for his admission there. She states she should have an answer soon. CM will continue to follow and assist with discharge planning/needs. DCP- Discharge Planning Updated by [id number]: Mary Sosa on 03/25/19 7:[address] Received a note from patient's sister (Estela Suarez) that she has an authorization from patient's insurance for Inpatient rehab at [facility]. Authorization number is [id number] and phone number is [phone]. Dates are from 03/19 until 03/29 but dates can be reset when admitted. I sent this information to Migdalia [facility]. Updated clinical sent. CM will continue to follow and assist with discharge planning/needs. DCP- Discharge Planning Updated by [id number]: Mary Sosa on 03/22/19 3:[address] I spoke with Edy at [facility] concerning expedited appeal for inpatient rehab. His Claim number is [id number] and Edy states it shows it is still under review and a decision will be reached on March. I did call Estela Suarez, sister, and informed her of this. CM will continue to follow and assist with discharge planning/needs. [facility] expedited appeal - [phone] OPT #3 DCP- Discharge Planning Updated by [email or web address]: Mary Sosa on 03/22/19 12:[address] Sher Blanchard (APS field traffic investigator) met with patient today. He is going to call his sister, Estela, for more information. He has asked that we call him when he is discharged and inform of DC disposition so APS can continue to follow him. Sher's call back number is [phone] Ext. [phone]. Fax number is [phone]. DCP- Discharge Planning Updated by [id number]: Mary Sosa on 03/22/19 12:[address] I have called [facility] and left a message for Camilla Devyn to return my call. Her number is Ext. [phone] to inquire about the appeal for inpatient rehab for this patient. I will continue to try and reach Human to check on appeal. CM will continue to follow and assist with discharge planning/needs. DCP- Discharge Planning Updated by [email or web address]: Mary Ssoa on 03/21/19 2:[address] I spoke with Estela again concerning discharge plans. She does not want her brother at this time to go to a psychiatric facility. She states that [facility] has called her and said that inpatient rehab was approved but they needed a copy of her POA faxed. I faxed that this morning to the number given and Estela is faxing it at this time again. I called Migdalia with [facility] and left a message. I am waiting on a call back from [facility] for authorization for admission. DCP- Discharge Planning Updated by [id number]: Mary Sosa on 03/21/19 10:[address] Patient's sister called concerning appeal for inpatient rehab. She states that Migdalia at [facility] rehab is sending pre and post notes to the insurance from the last time he had rehab there. She states that they need me to fax the POA and any additional notes to them to review. I faxed the POA and additional notes to [phone] Case #[id number] per Estela's (POA/sister) request. I did inform her of Dr. Coffman's recommendation for inpatient psychiatric unit and she disagrees at this time. She states that she feels if he gets rehab and go home she will have him follow up at [facility]. CM will continue to follow and assist with discharge planning/needs. DCP- Discharge Planning Updated by [id number]: Mary Sosa on 03/20/19 4:[address] Patient's sister recalled again and she is wanting to do an appeal with the insurance company concerning inpatient rehab. She is speaking with the insurance company now and just wanted me to be aware. CM will continue to follow and assist with discharge planning/needs. DCP- Discharge Planning Updated by [id number]: Mary Sosa on 03/20/19 3:[address] CM contacted Dr. Hodge concerning peer to peer and the medical dir did not approve inpatient rehab. I called his sister (Zen) to see if she would like me to send his referral to a skilled unit. I started to give her a list of the skilled facilities and she said that she was calling his insurance and she disconnected. I will begin working on a RE for possible skilled placement. CM will continue to follow and assist with discharge planning/needs. DCP- Discharge Planning Updated by [id number]: Mary Sosa on 03/20/19 11:[address] I spoke with patient and his sister today and informed him of insurance denial for inpatient rehab. His sister, Estela, would like a peer to peer done. She also agrees with psychiatric consult. He is too young for admission to our inpatient rehab and states if he needs inpatient rehab she would agree to [facility]. She does not want him to go to [facility]. CM will continue to follow and assist with discharge planning/needs. DCP- Discharge Planning Updated by [id number]: Mary Sosa on 03/18/19 2:[address] Patient Name: PAGE SUAREZ Admission Status: ER Accout number: [id number] Admission Date: 03-15-2019 : 1960 Admission Diagnosis: Attending: CLYDE, Current LOS: 3 Anticipated DC Date: Planned Disposition: Inpatient Rehab Primary Insurance: [employer] CHOICE PPO [employer] Discharge Planning Comments: CM met with patient's sister, Estela (She is also his POA for healthcare). She states that her brother and step father (Anurag) has been living together. She states neither of them drive, but she has had their neighbors (Pepe and Cherry Aguila) be their private caregivers. She states they are neighbors with Swathi. She states she lives in [place] and states the neighbors found her brother on the floor and did not call 911. She states that she has found that they are taking her brother's money and charging personal items on his credit card. She states her brother walks with a walker and she had him set up to go to counseling at the [facility] in [place], but his caretakers did not take him. She states that she now has new caretakers that she can trust to move in the house so when her brother return home, he and her step father will never be alone. She would like him to go to [facility] inpatient rehab (he has been there before) prior to going home. I called Migdalia and clinical faxed to [facility]. Estela states that she does not want him to go to a skilled unit, she thinks he would not like that. I called APS (and informed Estela that I was going to do so) and spoke to Leanne [place]. [place] [id number]. CM will continue to follow and assist with discharge planning/needs. Appliance Installer: Mary Sosa DCP- Discharge Planning Updated by [email or web address]: Mary Sosa on 03/18/19 11:[address] I called patient's sister Estela at [phone] and she would like to meet with me in about an hour to discuss discharge planning. I informed her to call me directly when she is here or inform someone at the [facility] desk that she is here. Patient is sleeping in the room. CM will continue to follow and assist with discharge planning/needs. DCPIA - Discharge Planning Initial Assessment Updated by [id number]: Mary Sheila on 03/18/19 2:55 pm * Is the patient Alert and Oriented? No * PCP Dr. Robbins * [facility] [address] * Preadmission Environment Home with Family * ADLs Partial Dependent * Partial ADLs (Assistance needed) Ambulation * Equipment Walker * List name and contact numbers for known caregivers / representatives who currently or will assist patient after discharge: Estela Suarez - - [phone] * Verbal permission to speak to the caregivers and representatives has been obtained from the patient. Yes * Community resources currently utilized None * Additional services required to return to the preadmission environment? Yes * Can the patient safely return to the preadmission environment? No * Has this patient been hospitalized within the prior 30 days at any hospital? No Last DP export: 03/25/19 7:47 a Patient Name: PAGE SUAREZ Page 80621 at 1139 All edits/amendments must be made on the electronic document DICTATION DATE: 03/25/191138 CLIENT TECHNICAL SUPPORT ASSOCIATE: RIRI 03/25/19 113 RPT#: [id number] DC DATE: STATUS: ADM IN [facility] [address] [place] [address] END OF REPORT
--- NOTE | 2019-03-25 13:02 | NUR ---
OT NOTE: PERFORMED BED MOB WITH MAX ASSIST; PT COMPLETELY WET; CHANGED GOWN WITH MOD ASSIST; DONNED PULL UPS AND SOCKS WITH MAX ASSIST; AMB TO BATHROOM WITH MOD ASSIST; URINATED ON FLOOR AND REQUIRED CLEANING AGAIN. MOD VC BACK TO BED; ABLE TO WASH FACE, HANDS, AND CHEST WITH WASHCLOTH AND MOD CUES TO STAY ON TASK; MAX ASSIST WITH PERINEAL CLEANING. DURGA MCNEIL, OTR/L
--- NOTE | 2019-03-25 13:09 | NUR ---
NUTRITION F/U HAMLET DIET WITH POOR PO INTAKE RECENT MEALS. NURSING REPORTS PT SLEEPING A LOT AND REQUIRES FREQUENT WAKING AND ENCOURAGEMENT TO EAT. NOTE POSSIBLE DC TO REHAB. RD FOLLOWING
--- NOTE | 2019-03-25 13:15 | NUR ---
WOKE PT UP TO EAT LUNCH. PT RR EVEN AND UNLABORED. NO S/S OF DISTRESS AT THIS TIME. VITALS STABLE. WILL CONTINUEN TO MONITOR.
[2019-03-25 13:56] VITALS: BP 115/66
--- NOTE | 2019-03-25 13:58 | NUR ---
PT SISTER KARYNA LANCASTER.
--- NOTE | 2019-03-25 14:15 | NUR ---
PT IS LYING IN BED,WITHOUT DISTRESS.FAMILY TO VISIT
[2019-03-25] MEDS ORDERED: DEPAKOTE250 MG PO (15:40)
[2019-03-25] MEDS ORDERED: GEODON20 MG PO (15:45)
--- NOTE | 2019-03-25 16:00 | MORECARE ---
CASE MANAGEMENT DISCHARGE SUMMARY PATIENT: PAGE SUAREZ UNIT: [id number] ADM DATE: 03/15/19 AGE: 59 : 58 SEX: M ROOM/BED: D.2226 AUTHOR: KIRBY,DOC PHYSICIAN: REFERRING PHYSICIAN: ANTWON TANG MD DATE OF SERVICE: 03/25/19 Discharge Plan Patient Name: PAGE SUAREZ Facility: [facility]:[place] : 1960 Planned Disposition: Inpatient Rehab Anticipated Discharge Date: Discharge Date: Expected LOS: Initial Reviewer: [email or web address] Initial Review Date: 03/18/2019 Generated: 03/25/19 5:00 pm Comments DCP- Discharge Planning Updated by [email or web address]: Mary Sosa on 03/25/19 2:[address] Received a call from Migdalia that she has received authorization for admission to their facility at [facility]. I called Shaylee Solo and informed her so she could update discharge order/meds. I spoke with Estela Suarez (patient's sister) and informed her. I also spoke with the patient and he is alert and states he is ready to go to rehab. Discharge clinical/meds/MAR faxed to [facility]. He will need to transport via ambulance and I informed Migdalia. Migdalia states they will arrange transportation via ambulance. hse coordinator informed. I called Sher Soria with [facility] and left a message to return my call but that he is being discharged to [facility] today. Discharging today to inpatient rehab at [facility]. DCP- Discharge Planning Updated by [email or web address]: Mary Sosa on 03/25/19 10:[address] I spoke with Migdalia at [facility], they are still trying to get the determination for his admission there. She states she should have an answer soon. CM will continue to follow and assist with discharge planning/needs. DCP- Discharge Planning Updated by [email or web address]: Mary Sosa on 03/25/19 7:[address] Received a note from patient's sister (Estela Suarez) that she has an authorization from patient's insurance for Inpatient rehab at [facility]. Authorization number is [id number] and phone number is [phone]. Dates are from 03/19 until 03/29 but dates can be reset when admitted. I sent this information to Migdalia at [facility]. Updated clinical sent. CM will continue to follow and assist with discharge planning/needs. DCP- Discharge Planning Updated by [email or web address]: Mary Sosa on 03/22/19 3:[address] I spoke with Edy at [facility] concerning expedited appeal for inpatient rehab. His Claim number is [id number] and Edy states it shows it is still under review and a decision will be reached on March. I did call Estela Suarez, sister, and informed her of this. CM will continue to follow and assist with discharge planning/needs. [facility] expedited appeal - [phone] OPT #3 DCP- Discharge Planning Updated by [email or web address]: Mary Sosa on 03/22/19 12:[address] Sher Blanchard ([facility] industry operations investigator) met with patient today. He is going to call his sister, Estela, for more information. He has asked that we call him when he is discharged and inform of DC disposition so [facility] can continue to follow him. Sher's call back number is [phone] Ext. [phone]. Fax number is [phone]. DCP- Discharge Planning Updated by [email or web address]: Mary Sosa on 03/22/19 12:[address] I have called [facility] and left a message for Camilla Shepard to return my call. Her number is Ext. [phone] to inquire about the appeal for inpatient rehab for this patient. I will continue to try and reach [facility] to check on appeal. CM will continue to follow and assist with discharge planning/needs. DCP- Discharge Planning Updated by [id number]: Mary Sosa on 03/21/19 2:[address] I spoke with Estela again concerning discharge plans. She does not want her brother at this time to go to a psychiatric facility. She states that [facility] has called her and said that inpatient rehab was approved but they needed a copy of her POA faxed. I faxed that this morning to the number given and Estela is faxing it at this time again. I called Migdalia with [facility] and left a message. I am waiting on a call back from [facility] for authorization for admission. DCP- Discharge Planning Updated by [id number]: Mary Sosa on 03/21/19 10:[address] Patient's sister called concerning appeal for inpatient rehab. She states that Migdalia at [facility] rehab is sending pre and post notes to the insurance from the last time he had rehab there. She states that they need me to fax the POA and any additional notes to them to review. I faxed the POA and additional notes to [phone] Case #[id number] per Estela's (POA/sister) request. I did inform her of Dr. Coffman's recommendation for inpatient psychiatric unit and she disagrees at this time. She states that she feels if he gets rehab and go home she will have him follow up at [facility]. CM will continue to follow and assist with discharge planning/needs. DCP- Discharge Planning Updated by [email or web address]: Mary Sosa on 03/20/19 4:[address] Patient's sister recalled again and she is wanting to do an appeal with the insurance company concerning inpatient rehab. She is speaking with the insurance company now and just wanted me to be aware. CM will continue to follow and assist with discharge planning/needs. DCP- Discharge Planning Updated by [email or web address]: Mary Sosa on 03/20/19 3:[address] CM [address]. Hodge concerning peer to peer and the lpn or medical assistant did not approve inpatient rehab. I called his sister (Zen) to see if she would like me to send his referral to a skilled unit. I started to give her a list of the skilled facilities and she said that she was calling his insurance and she disconnected. I will begin working on a RE for possible skilled placement. CM will continue to follow and assist with discharge planning/needs. DCP- Discharge Planning Updated by [id number]: Mary Sosa on 03/20/19 11:[address] I spoke with patient and his sister today and informed him of insurance denial for inpatient rehab. His sister, Estela, would like a peer to peer done. She also agrees with psychiatric consult. He is too young for admission to our inpatient rehab and states if he needs inpatient rehab she would agree to [facility]. She does not want him to go to [facility]. CM will continue to follow and assist with discharge planning/needs. DCP- Discharge Planning Updated by [email or web address]: Mary Sosa on 03/18/19 2:[address] Patient Name: PAGE SUAREZ Admission Status: ER Accout number: [id number] Admission Date: 03-15-2019 : 1960 Admission Diagnosis: Attending: CLYDE, Current LOS: 3 Anticipated DC Date: Planned Disposition: Inpatient Rehab Primary Insurance: [employer] PPO [facility] Discharge Planning Comments: CM met with patient's sister, Estela (She is also his POA for healthcare). She states that her brother and step father (Anurag) has been living together. She states neither of them drive, but she has had their neighbors (Pepe and Cherry Aguila) be their private caregivers. She states they are neighbors with Pepe and Cherry. She states she lives in [place] and states the neighbors found her brother on the floor and did not call 911. She states that she has found that they are taking her brother's money and charging personal items on his credit card. She states her brother walks with a walker and she had him set [facility] [place], but his caretakers did not take him. She states that she now has new caretakers that she can trust to move in the house so when her brother return home, he and her step father will never be alone. She would like him to go to [facility] inpatient rehab (he has been there before) prior to going home. I called Migdalia and clinical faxed to [facility]. Estela states that she does not want him to go to a skilled unit, she thinks he would not like that. I called [facility] (and informed Estela that I was going to do so) and spoke to Leanne [place]. [place] [id number]. CM will continue to follow and assist with discharge planning/needs. Supervisor [employer]: Mary Sosa DCP- Discharge Planning Updated by [id number]: Mary Sosa on 03/18/19 11:[address] I called patient's sister Estela at [phone] and she would like to meet with me in about an hour to discuss discharge planning. I informed her to call me directly when she is here or inform someone at the med surg desk that she is here. Patient is sleeping in the room. CM will continue to follow and assist with discharge planning/needs. DCPIA - Discharge Planning Initial Assessment Updated by [email or web address]: Mary Sosa on 03/18/19 2:55 pm * Is the patient Alert and Oriented? No * PCP Dr. Robbins * [facility] [address] * Preadmission Environment Home with Family * ADLs Partial Dependent * Partial ADLs (Assistance needed) Ambulation * Equipment Walker * List name and contact numbers for known caregivers / representatives who currently or will assist patient after discharge: Estela Suarez - sister - [phone] * Verbal permission to speak to the caregivers and representatives has been obtained from the patient. Yes * Community resources currently utilized None * Additional services required to return to the preadmission environment? Yes * Can the patient safely return to the preadmission environment? No * Has this patient been hospitalized within the prior 30 days at any hospital? No Coverage Notice Reviewer: [id number] - Mary Sosa Notice Issued Date-Time: 03/25/2019 15:37 Notice Type: IM Discharge Notice Notice Delivered To: Family Member Relationship to Patient: Sister Fructose Loader Name: Estela Suarez Delivery Method: PHONE - Phone Garima Days: Prior Verbal Notification: Recipient Understood Notice: Yes Recipient Signature: Med Rec Note Co-signed by Attending: Coverage Notice Comment: IMM explained over the phone to sister, left at bedside, copy to MR. Man agrees with discharge to inpatient rehab Last DP export: 03/25/19 10:39 a Patient Name: PAGE SUAREZ Page [id number] at 1600 All edits/amendments must be made on the electronic document DICTATION DATE: 03/25/19 1600 LOT PORTER: RIRI 03/25/19 1600 RPT#: [id number] DC DATE: STATUS: ADM IN [facility] [address] [place] [address] END OF REPORT
--- NOTE | 2019-03-25 16:25 | NUR ---
PT RESTING IN BED WITH EYES CLOSED. RR EVEN AND UNLABORED. BED LOW CALL LIGHT WITHIN REACH. BED ALARM IN PLACE.WILL CONTINUE TO MONITOR. NO S/S OF DISTRESS AT THIS TIME.
--- NOTE | 2019-03-25 18:30 | NUR ---
ANDREW BEGUM CALLED. PT PICKED UP BY [facility]. VITALS STABLE AT THIS TIME.
--- NOTE | 2019-03-25 19:02 | NUR ---
CALLED PT'S SISTER NO ANSWER. LEFT MESSAGE ON VOICE MAIL.
== END 2019-03-25 18:30 | DRG 564 ==
LOC: D.ER 21:36 → D.MS 23:56
PROVIDERS: Emergency Medicine; Family Medicine; Internal Medicine Nephrology; ADMIT Family Medicine; ATTEND Family Medicine
DX: T79.6XXA Traumatic ischemia of muscle, initial encounter (principal); G93.41 Metabolic encephalopathy; E87.0 Hyperosmolality and hypernatremia; E87.6 Hypokalemia; D64.9 Anemia, unspecified; I10 Essential (primary) hypertension; I25.10 Atherosclerotic heart disease of native coronary artery without angina pectoris

== ENCOUNTER 2019-05-24 12:58 | Emergency (ER) | payer MEDICARE ==
[~2019-05-24] VITALS: Ht 177.8 cm; Wt 95.5 kg
[~2019-05-24 12:58] MED LIST: BAYER CHEWABLE81 MG PO; CELEXA10 MG PO; COLACE100 MG PO; DEPAKOTE250 MG PO; FOLIC ACID1 MG PO; GEODON20 MG PO; LISINOPRIL20 MG PO; LOVASTATIN20 MG PO; MOBIC7.5 MG PO; NORVASC10 MG PO; REMERON15 MG PO; SEROQUEL25 MG PO
[2019-05-24 13:04] VITALS: Ht 177.8 cm; Wt 95.5 kg
[2019-05-24 14:14] LABS: UDS - AMPHET NEGATIVE QUAL (NEGATIVE); UDS - BARB NEGATIVE QUAL (NEGATIVE); UDS - BENZO NEGATIVE QUAL (NEGATIVE); UDS - COCAINE NEGATIVE QUAL (NEGATIVE); UDS - OPIATE NEGATIVE QUAL (NEGATIVE); UDS - PCP NEGATIVE QUAL (NEGATIVE); UDS - THC NEGATIVE QUAL (NEGATIVE)
[2019-05-24 14:31] LABS: APPEARANCE HAZY (CLEAR); BILIRUBIN NEGATIVE (NEGATIVE); COLOR YELLOW (YELLOW); GLUCOSE NEGATIVE (NEGATIVE); KETONE NEGATIVE (NEGATIVE); NITRITE NEGATIVE (NEGATIVE); PROTEIN TRACE mg/dL (NEGATIVE); SPECIFIC GRAVITY 1.015 (1.005-1.020); UROBILINOGEN NORMAL (NORMAL)
[2019-05-24 14:32] LABS: BACTERIA MODERATE /hpf (NEGATIVE); EPITHELIAL CELLS 0-5 /hpf (0-5); HYALINE CAST 0-5 /lpf (NONE SEEN); MUCUS <1+ /lpf (NONE SEEN); RED CELLS - URINE 0-5 /hpf (0-5); WHITE CELLS - URINE RARE /hpf (NEGATIVE)
[2019-05-24 14:33] LABS: URIC ACID CRYSTALS 0-5 /hpf (NONE SEEN)
[2019-05-24 15:20] LABS: HEMATOCRIT 34.3 % (42.0-54.0); HEMOGLOBIN 11.6 g/dL (13.5-17.5); MCH 28.5 pg (26.0-34.0); MCHC 33.8 g/dL (31.0-37.0); MCV 84.3 fL (80.0-100.0); MEAN PLATELET VOLUME 8.4 fL (7.4-10.4); PLATELET COUNT 226 10x3/uL (130-400); RBC 4.07 10x6/uL (4.20-6.10); RDW 14.2 % (11.5-14.5); WBC 6.4 10x3/uL (4.8-10.8)
[2019-05-24 15:28] LABS: APTT 31.4 SECONDS (22.8-39.4); INR 1.27 (0.85-1.17); PROTIME 15.3 SECONDS (11.6-15.0)
[2019-05-24 15:44] LABS: LYMPHOCYTES 42 % (15-50); MONOCYTES 10 % (2-11); NEUTROPHILS 47 % (40-80); PLATELET ESTIMATE NORMAL
[2019-05-24 15:46] LABS: ALBUMIN 2.8 g/dL (3.4-5.0); ALKALINE PHOSPHATASE 53 U/L (46-116); ALT (SGPT) 33 U/L (10-68); BILIRUBIN - TOTAL 0.32 mg/dL (0.2-1.3); CALC OSMOLALITY 300 mosm/kg (275-300); CALCIUM 8.5 mg/dL (8.5-10.1); CARBON DIOXIDE 31.4 mmol/L (21.0-32.0); CHLORIDE - SERUM 111 mmol/L (98-107); CREATININE - SERUM 1.1 mg/dL (0.6-1.3); GLUCOSE 97 mg/dL (74-106); POTASSIUM - SERUM 3.9 mmol/L (3.5-5.1); SODIUM 148 mmol/L (136-145); UREA NITROGEN 31 mg/dL (7-18); eGFR NON AFRICAN AMERICAN 72 mL/min (90-120)
[2019-05-24 16:01] LABS: CKMB 4.3 U/L (0.0-3.6); CREATINE KINASE 373 UL (21-232); MAGNESIUM - SERUM 2.1 mg/dL (1.8-2.4); THYROID STIMULATING HORMONE 0.85 uIU/mL (0.36-3.74)
[2019-05-24 16:03] LABS: TROPONIN-I < 0.017 ng/mL (0.000-0.060)
[2019-05-24 21:34] VITALS: BP 136/68
== END 2019-05-24 21:36 | disposition other institution (70) ==
LOC: D.ER 12:58
PROVIDERS: Family Medicine
DX: R41.82 Altered mental status, unspecified (principal); R47.02 Dysphasia